=== PATIENT | male | born 1960 | race Caucasian/White ===

== ENCOUNTER 2020-11-12 19:07 | Inpatient (IN) | payer MEDICARE, OTHER ==
[~2020-11-12] VITALS: Ht 180.3 cm; Wt 106.6 kg
--- NOTE | 2020-11-12 19:10 | NUR ---
Note slick in EDM - 11/12/20 at 2015 by JOHN pt received from [facility]. pt is in bed. receiving atb iv infusion. pt is marked for dc but awaiting to finish atb.
--- NOTE | 2020-11-12 19:39 | NUR ---
GRAHAM FROM [facility]. TO ER BED 12. AAOX3. NOT IN RESP DISTRESS, BREATHING EVEN AND UNLABORED. BROUGHT IN FOR INCREASING CONFUSION. CALLED THE FACILITY TO VERIFY THE REASON OF SENDING THE PT, PER DANYEL COLLINS CEPHALOMETRIC ANALYST. PT WAS SENT BECAUSE HE WAS YELLING ANG SCREAMING THE ENTIRE DAY. SHE ALSO REPORTS THAT THE PT HAD UTI LAST WEEK AND HAVE ALREADY COMPLETED THE TREATMENT. UPON RECEIVING PT, HE WAS CALM COOPEARTIVE AND PLEASANT, NO YELLING NOR SCREAMING. WAS AT THE BEDSIDE FOR EVAL. AWAITING FOR ORDERS
[2020-11-12 20:10] LABS: BASOPHILS # (AUTO) 0.1 /CMM (0.0-0.2); BASOPHILS % (AUTO) 0.7 % (0.0-2.0); EOSINOPHILS % (AUTO) 3.3 % (0.0-6.0); HEMATOCRIT 38 % (39-51); HEMOGLOBIN 12.7 g/dL (13.5-17.5); LYMPHOCYTES # (AUTO) 2.1 /CMM (0.8-4.8); LYMPHOCYTES % (AUTO) 18.3 % (20.0-44.0); MEAN CORPUSCULAR HGB CONC 33 g/dl (31.0-36.0); MEAN CORPUSCULAR VOLUME 85 fL (80-96); MONOCYTES # (AUTO) 0.9 /CMM (0.1-1.30); NEUTROPHILS # (AUTO) 7.9 /CMM (1.8-8.9); NEUTROPHILS % (AUTO) 69.7 % (43.0-81.0); PLATELET COUNT (AUTO) 348 /CMM (150-450); RED BLOOD CELL COUNT(AUTO) 4.52 MIL/uL (4.5-6.0); WHITE BLOOD COUNT (AUTO) 11.4 K/uL (4.3-11.0)
[2020-11-12 21:06] LABS: BILIRUBIN,URINE NEGATIVE (NEGATIVE); COLOR,URINE YELLOW (YELLOW); LEUKOCYTE ESTERASE ,URINE NEGATIVE (NEGATIVE); NITRITE, URINE NEGATIVE (NEGATIVE); PH,URINE 5.5 (5.0-8.0); PROTEIN,URINE NEGATIVE (NEGATIVE); UGLUCOSE NEGATIVE (NEGATIVE); UROBILINOGEN,URINE 0.2 EU/dL (0.2)
[2020-11-12 21:15] LABS: CALCIUM, SERUM 9.8 mg/dL (8.5-10.1); CREATININE 0.8 mg/dL (0.6-1.3); POTASSIUM 4.1 mmol/L (3.5-5.1)
[2020-11-12 21:21] LABS: ALBUMIN 3.4 g/dL (3.4-5.0); BILIRUBIN,DIRECT 0.1 mg/dL (0.0-0.2); BILIRUBIN,TOTAL 0.3 mg/dL (0.2-1.0); TOTAL PROTEIN, SERUM 7.4 g/dL (6.4-8.2)
[2020-11-12] MEDS ORDERED: HYDROCODONE/APAP 5/325MG TABLET ONE (21:27)
[2020-11-12] MEDS ORDERED: HYDROCODONE/APAP 5/325MG TABLET PO ONE (21:30)
--- NOTE | 2020-11-12 23:14 | NUR ---
CALLED DARRYL RIDER FOR EVALUATION
--- NOTE | 2020-11-13 | NUR ---
ART, MONUMENT SETTER HELPER AT BEDSIDE FOR EVALUATION
--- NOTE | 2020-11-13 07:30 | NUR ---
ASSESSED PT ON BED ASLEEP EASIY AROUSABLE, NOT IN RESPIRATORY DISTRESS, V/S STABLE, KEPT RESTED AND COMFORTABLE. WILL CONTINUE TO MONITOR.
[2020-11-13] MEDS ORDERED: INSU100V7 SQ (07:57)
[2020-11-13] MEDS ORDERED: GABA-532 PO (07:57)
[2020-11-13] MEDS ORDERED: CRAN3875 PO (07:57)
[2020-11-13] MEDS ORDERED: INSU100V39 SQ (07:57)
[2020-11-13] MEDS ORDERED: LISI10TA29 PO (07:57)
[2020-11-13] MEDS ORDERED: HEPA50008 SQ (07:57)
[2020-11-13] MEDS ORDERED: BISA10SU11 RC (07:57)
[2020-11-13] MEDS ORDERED: ASCO-352 PO (07:57)
[2020-11-13] MEDS ORDERED: HYDR-3972 PO (07:57)
[2020-11-13] MEDS ORDERED: SENN-261 PO (07:57)
[2020-11-13] MEDS ORDERED: DOCU-141 PO (07:57)
[2020-11-13] MEDS ORDERED: ACET-868 PO (07:57)
[2020-11-13] MEDS ORDERED: NA P133E RC (07:57)
[2020-11-13] MEDS ORDERED: DIFL15OI3 TP (07:57)
[2020-11-13] MEDS ORDERED: FERR325T23 PO (07:57)
[2020-11-13] MEDS ORDERED: QUET100T PO (07:57)
[2020-11-13] MEDS ORDERED: GLUC1KIT IM (07:57)
[2020-11-13] MEDS ORDERED: QUET25TA PO (07:57)
[2020-11-13] MEDS ORDERED: MAGN400O6 PO (07:57)
[2020-11-13] MEDS ORDERED: LIDO30AD10 TP (07:57)
[2020-11-13] MEDS ORDERED: PRED20TA PO (07:57)
[2020-11-13] MEDS ORDERED: PANT40TA2 PO (07:57)
[2020-11-13] MEDS ORDERED: AMIN30LI2 PO (07:57)
--- NOTE | 2020-11-13 10:34 | NUR ---
GOT BED 217
--- NOTE | 2020-11-13 11:11 | NUR ---
wheeled patient via wheelchair accompanied by EMT in no distress. RN at bedside to assume care.
--- NOTE | 2020-11-13 11:45 | NUR ---
Patient received to rm 217, via stretcher, nonambulatory. Alert, awake, oriented 2 but uncooperative with admission questions, yelling "I want a tv, I didn't sign up to be here!" Staff cleaned bm and changed gown on arrival. Skin assessment complete with no open areas noted, old surgical scar noted mid-back, bilat feet edematous. No c/o pain/discomforts. Addendum: 11/13/20 at 1232 by HEATHER CLEVELAND RN Generalized splotchy areas(resemble petechiae) about body with flushed appearance.
[2020-11-13] MEDS ORDERED: MAG HYDROX/AL HYDROX/SIMETH 30 ML UDC PO PRN (12:00)
[2020-11-13] MEDS ORDERED: ACETAMINOPHEN 325 MG TABLET PO PRN ×2 (12:00→15:00)
[2020-11-13] MEDS ORDERED: MAGNESIUM HYDROXIDE 30 ML UDC PO PRN ×2 (12:00→15:00)
[2020-11-13] MEDS ORDERED: BLOOD SUGAR DIAGNOSTIC 1 EACH STRIP IN ONE (12:00)
[2020-11-13 12:08] VITALS: BP 136/84
--- NOTE | 2020-11-13 14:10 | NUR ---
flight line service attendant Note: 60 y/o male, admitted from [facility] on 5150 for GD. Patient reports he doesn't know why he is here. SNF reports he was constantly screaming nonstop. Face to face assessment patient is aa0x2, dishevelled, clear speech, denies SI/H VAH a this time. Loud, irritated, uncooperative behavior. Scattered thoughts. VS taken, patient's handbook w/ rights and guide to prescriptions given. Skin intact. Notified Dr. Carballo of admission. Will continue to monitor [id number] per protocol for safety and behavior.
[2020-11-13] MEDS ORDERED: BISACODYL SUPP (10 MG) 10 MG/SUPP.RECT SUPP.RECT RC PRN (15:00)
[2020-11-13] MEDS ORDERED: NA PHOS,M-B/NA PHOS,DI-BA 1 EA ENEMA RC PRN (15:00)
[2020-11-13] MEDS ORDERED: DEXTROSE 50%-WATER 50 ML DISP.SYRIN IV PRN ×2 (15:30→16:00)
[2020-11-13] MEDS ORDERED: INSULIN LISPRO/ASPART 100 UNIT/ML CARTRIDGE SQ ONE (15:30)
[2020-11-13] MEDS ORDERED: GLUCAGON,HUMAN RECOMBINANT 1 MG/VIAL VIAL IV ONE (15:30)
[2020-11-13] MEDS: HYDROCODONE/APAP 5/325MG TABLET PO PRN ×3 (15:41→22:42)
[2020-11-13 16:00] VITALS: BP 127/89
[2020-11-13] MEDS ORDERED: INSULIN REGULAR, HUMAN 100 UNIT/ML 3 ML VIAL SQ PRN (16:00)
[2020-11-13] MEDS: DOCUSATE SODIUM 100 MG CAPSULE PO SCH (16:33)
[2020-11-13] MEDS: predniSONE 20 MG TABLET PO SCH (16:33)
[2020-11-13] MEDS: GABAPENTIN 300 MG CAPSULE PO SCH (16:34)
[2020-11-13] MEDS: BLOOD SUGAR DIAGNOSTIC 1 EACH STRIP IN SCH ×2 (16:34→21:30)
[2020-11-13] MEDS ORDERED: BLOOD SUGAR DIAGNOSTIC 1 EACH STRIP IN SCH (17:30)
--- NOTE | 2020-11-13 18:10 | NUR ---
RN Note: Patient cooperative, calm latter shift. Remains confused with disorganized thoughts. Disconnected from reality-rambles about driving his cars to shopping. Monitoring for safety and behavior ongoing.
[2020-11-13 20:00] VITALS: BP 138/89
[2020-11-13] MEDS: HEPARIN SODIUM, PORCINE 5000 UNITS/1 ML VIAL SQ SCH (21:29)
[2020-11-13] MEDS: SENNOSIDES 8.6 MG TABLET PO SCH (21:30)
[2020-11-13] MEDS ORDERED: INSULIN GLARGINE, 100 UNIT/ML CARTRIDGE SQ SCH (22:00)
[2020-11-13] MEDS: LORAZEPAM 1 MG TABLET PO PRN (23:30)
[2020-11-14] MEDS: HYDROCODONE/APAP 5/325MG TABLET PO PRN ×2 (05:24→16:28)
[2020-11-14] MEDS: PANTOPRAZOLE 40 MG TABLET.DR PO SCH ×2 (07:30→08:38)
[2020-11-14] MEDS: BLOOD SUGAR DIAGNOSTIC 1 EACH STRIP IN SCH ×4 (07:30→21:21)
[2020-11-14 07:53] LABS: CHOLESTEROL 190 mg/dL (<200); HDL CHOLESTEROL 56 mg/dL (40-60); LDL 119 mg/dL (0-99); TRIGLYCERIDES 93 mg/dL (30-150)
[2020-11-14 08:00] VITALS: BP 139/86
[2020-11-14 08:27] LABS: ALBUMIN 3.2 g/dL (3.4-5.0); BILIRUBIN,TOTAL 0.5 mg/dL (0.2-1.0); CALCIUM, SERUM 9.4 mg/dL (8.5-10.1); CREATININE 0.7 mg/dL (0.6-1.3); POTASSIUM 3.4 mmol/L (3.5-5.1)
[2020-11-14] MEDS: DOCUSATE SODIUM 100 MG CAPSULE PO SCH ×3 (08:38→16:29)
[2020-11-14] MEDS: ASCORBIC ACID 500 MG TABLET PO SCH ×2 (08:38→09:00)
[2020-11-14] MEDS: GABAPENTIN 300 MG CAPSULE PO SCH ×4 (08:38→16:29)
[2020-11-14] MEDS: LISINOPRIL (10MG) 10 MG TABLET PO SCH ×2 (08:39→09:00)
[2020-11-14] MEDS: FERROUS SULFATE (325 MG) 325 MG/TAB TABLET PO SCH ×2 (08:39→09:00)
[2020-11-14] MEDS: HEPARIN SODIUM, PORCINE 5000 UNITS/1 ML VIAL SQ SCH ×3 (08:40→20:19)
[2020-11-14] MEDS: LIDOCAINE 5% (PATCH) 1 EA PATCH TP SCH ×2 (08:41→09:00)
[2020-11-14] MEDS: predniSONE 20 MG TABLET PO SCH (08:54)
--- NOTE | 2020-11-14 09:09 | NUR ---
pt uncooperetive-aggitated and demanding to speak with "compensation programs manager" -because he doesn't want to share a room with someone-meds returned to [facility]-advised of situation to discharge rn -aware
[2020-11-14] MEDS ORDERED: POTASSIUM CHLORIDE 20 MEQ TAB.PRT.SR PO ONE ×2 (09:30→13:00)
--- NOTE | 2020-11-14 15:40 | NUR ---
pt Blood sugar done-106-no coverage needed
[2020-11-14 16:00] VITALS: BP 142/83
[2020-11-14] MEDS: predniSONE 5 MG TABLET PO SCH (16:29)
--- NOTE | 2020-11-14 17:39 | NUR ---
RN-CO: SEEN BY DR RICHMOND.
--- NOTE | 2020-11-14 18:00 | NUR ---
Micro called Elen Henao-patient POSITIVE for MRSA in the nares-call out to Md Carballo -order received for Bactroban for the nares BID for 5 days-TORB and confirmed and transcribed
[2020-11-14] MEDS: LORAZEPAM 1 MG TABLET PO PRN (20:13)
--- NOTE | 2020-11-14 20:13 | NUR ---
GPS-RN NOTES: ANXIETY PATIENT C/O FEELING ANXIOUS AND REQUESTED FOR ATIVAN. PRN ATIVAN 1MG PO GIVEN ORDERED. WILL CONTINUE TO MONITOR FOR PATIENT'S SAFETY.
[2020-11-14 20:50] VITALS: BP 132/86
[2020-11-14] MEDS: MUPIROCIN OINT 2% 22 GM TUBE NS SCH (20:56)
[2020-11-14] MEDS: SENNOSIDES 8.6 MG TABLET PO SCH (21:10)
[2020-11-14] MEDS: QUETIAPINE FUMARATE 100 MG TABLET PO SCH (21:24)
[2020-11-14] MEDS ORDERED: INSULIN GLARGINE, 100 UNIT/ML CARTRIDGE SQ SCH (22:00)
[2020-11-15] MEDS: HYDROCODONE/APAP 5/325MG TABLET PO PRN ×3 (06:35→22:17)
--- NOTE | 2020-11-15 06:49 | NUR ---
GPS-RN NOTES: LOWER BACK PAIN PATIENT C/O LOWER BACK PAIN ON A PAIN SCALE OF 8/10. ADMINISTERED NORCO 5/325MG PO 2TABS ORDERED. WILL CONTINUE TO REASSESS PAIN.
[2020-11-15 08:00] VITALS: BP 111/66
[2020-11-15] MEDS: DOCUSATE SODIUM 100 MG CAPSULE PO SCH ×3 (08:14→16:04)
[2020-11-15] MEDS: QUETIAPINE FUMARATE 25 MG TABLET PO SCH ×2 (08:14→12:23)
[2020-11-15] MEDS: BLOOD SUGAR DIAGNOSTIC 1 EACH STRIP IN SCH ×4 (08:14→21:13)
[2020-11-15] MEDS: GABAPENTIN 300 MG CAPSULE PO SCH ×3 (08:14→16:04)
[2020-11-15] MEDS: LIDOCAINE 5% (PATCH) 1 EA PATCH TP SCH ×2 (08:14→09:00)
[2020-11-15] MEDS: PANTOPRAZOLE 40 MG TABLET.DR PO SCH (08:15)
[2020-11-15] MEDS: LORAZEPAM 1 MG TABLET PO PRN ×3 (08:15→21:20)
[2020-11-15] MEDS: LISINOPRIL (10MG) 10 MG TABLET PO SCH (08:15)
[2020-11-15] MEDS: predniSONE 5 MG TABLET PO SCH ×2 (08:15→16:04)
[2020-11-15] MEDS: MUPIROCIN OINT 2% 22 GM TUBE NS SCH ×2 (08:24→21:00)
[2020-11-15] MEDS: HEPARIN SODIUM, PORCINE 5000 UNITS/1 ML VIAL SQ SCH ×2 (08:24→21:15)
[2020-11-15 08:43] LABS: CALCIUM, SERUM 9.7 mg/dL (8.5-10.1); CREATININE 0.9 mg/dL (0.6-1.3); POTASSIUM 4.3 mmol/L (3.5-5.1)
--- NOTE | 2020-11-15 13:02 | NUR ---
Initial Discharge Plan: Pt currently resides at [facility] located at [address] [place] [id number]; . Per pt, he would like to return to the facility. FERNANDEZ will work with the pt and MD regarding appropriate discharge planning. SW will form a safe and proper plan.
--- NOTE | 2020-11-15 13:51 | NUR ---
SNF Contact: SW contacted Stefanie ([phone]) from [facility] who stated that the pt will be accepted back but they would like the SW to try other facilities first.
[2020-11-15 16:00] VITALS: BP 100/58
[2020-11-15 20:35] VITALS: BP 123/83
[2020-11-15] MEDS: INSULIN GLARGINE, 100 UNIT/ML CARTRIDGE SQ SCH (21:16)
[2020-11-15] MEDS: INSULIN ASPART/LISPRO 100 UNIT/ML CARTRIDGE SQ PRN (21:18)
--- NOTE | 2020-11-15 21:20 | NUR ---
NURSES NOTES: PATIENT REQUESTING FOR ATIVAN MEDICATION. BP AT THIS TIME IS 123/83 WITH A HR OF 79. ATIVAN 1 MG GIVEN ORALLY. WILL MONITOR PATIENT AND EFFICACY OF MEDICATION.
[2020-11-15] MEDS: SENNOSIDES 8.6 MG TABLET PO SCH (21:27)
--- NOTE | 2020-11-15 22:17 | NUR ---
NURSES NOTES: PATIENT COMPLAINING OF LOWER BACK PAIN 03/30. REQUESTED FOR HIS NORCO MEDICATION. BP RECHECKED 124/67. HR OF 77. O2 SAT AY 97%. ADMINISTERED NORCO MEDICATION PRN ORDER. WILL ,MONITOR PATIENT WELL EFFICACY OF MEDICATION.
[2020-11-15] MEDS: QUETIAPINE FUMARATE 100 MG TABLET PO SCH (22:59)
--- NOTE | 2020-11-15 22:59 | NUR ---
NURSE NOTES: PATIENT'S BP RECHECKED PRIOR TO SEROQUEL ADMINISTRATION. BP 112/83 HR78. ADMINISTERED SEROQUEL 100 MG PO GIVEN ORDERED. WILL CONTINUE TO MONITOR PATIENT.
--- NOTE | 2020-11-16 02:52 | NUR ---
NURSES NOTES: PATIENT NOTED TO HAVE THREE LOOSE BOWEL MOVEMENTS. DAVID MORIN NP MADE AWARE. MESSAGED ACKNOWLEDGED AND WITH ORDERS TO COLLECT STOOL SAMPLE FOR C DIFF TEST ON THE NEXT BOWEL MOVEMENT. ORDER NOTED AND CARRIED OUT.
[2020-11-16] MEDS: BLOOD SUGAR DIAGNOSTIC 1 EACH STRIP IN SCH ×4 (07:26→21:33)
[2020-11-16] MEDS: LORAZEPAM 1 MG TABLET PO PRN ×4 (07:39→21:34)
[2020-11-16] MEDS: PANTOPRAZOLE 40 MG TABLET.DR PO SCH (07:39)
[2020-11-16 08:00] VITALS: BP 113/69
[2020-11-16] MEDS: QUETIAPINE FUMARATE 25 MG TABLET PO SCH ×2 (08:02→12:16)
[2020-11-16] MEDS: predniSONE 5 MG TABLET PO SCH ×2 (08:02→16:08)
[2020-11-16] MEDS: MUPIROCIN OINT 2% 22 GM TUBE NS SCH ×2 (08:03→20:36)
[2020-11-16] MEDS: DOCUSATE SODIUM 100 MG CAPSULE PO SCH ×2 (08:03→16:01)
[2020-11-16] MEDS: GABAPENTIN 300 MG CAPSULE PO SCH ×3 (08:03→16:02)
[2020-11-16] MEDS: LISINOPRIL (10MG) 10 MG TABLET PO SCH (08:03)
[2020-11-16] MEDS: HEPARIN SODIUM, PORCINE 5000 UNITS/1 ML VIAL SQ SCH ×2 (08:03→20:43)
[2020-11-16] MEDS: LIDOCAINE 5% (PATCH) 1 EA PATCH TP SCH (08:04)
--- NOTE | 2020-11-16 08:04 | NUR ---
RN NOTES: Patient presents with agitation this a.m, demanding a change of room with tv, constant yelling "nurse, help" no acute distress noted. Patient refused lidocaine patch, fingerstick, colace, heparin and bactroban-"I don't need that shit!" Breakfast consumed.
[2020-11-16] MEDS: HYDROCODONE/APAP 5/325MG TABLET PO PRN ×2 (10:39→16:41)
--- NOTE | 2020-11-16 14:31 | NUR ---
Patient in the room, awake, screaming for nurses help continuous. Patient frequently request ativan and norco prior to when due. Medication time provided on board.Explained to the patient regarding the times he can have his medications based on doctors orders. He says "fuck vitals signs bring my medicine." q15 min checks continued. Safety and fall precautions observed. bed alarm kept on. encouraged patient to turn to sides while in bed to relieve pressure off his back. Limit setting done. Will continue to monitor patient for mood, safety and behavior.
[2020-11-16 16:00] VITALS: BP 124/63
--- NOTE | 2020-11-16 17:44 | NUR ---
1730 BS 131 PATIENT REFUSE INSULIN.
[2020-11-16 20:25] VITALS: BP 126/75
[2020-11-16] MEDS: QUETIAPINE FUMARATE 100 MG TABLET PO SCH (20:37)
[2020-11-16] MEDS: SENNOSIDES 8.6 MG TABLET PO SCH ×2 (21:33→22:00)
--- NOTE | 2020-11-16 21:34 | NUR ---
GPS-RN NOTES: ANXIETY PATIENT C/O FEELING ANXIOUS AND REQUESTED FOR ATIVAN. PRN ATIVAN 1MG PO GIVEN ORDERED. WILL CONTINUE TO MONITOR FOR PATIENT'S SAFETY.
[2020-11-16] MEDS: INSULIN GLARGINE, 100 UNIT/ML CARTRIDGE SQ SCH (21:47)
--- NOTE | 2020-11-16 22:30 | NUR ---
GPS-RN NOTES: SENOKOT DOSE SCHEDULED FOR TONIGHT HELD DUE TO PT HAD LOOSE BOWEL MOVEMENT THIS MORNING.
[2020-11-16] MEDS: TEMAZEPAM 7.5 MG CAPSULE PO PRN (23:16)
--- NOTE | 2020-11-16 23:16 | NUR ---
GPS-RN NOTES: INSOMNIA PATIENT C/O INABILITY TO SLEEP. ADMINISTERED RESTORIL 15MG PO ORDERED. WILL CONTINUE TO MONITOR.
[2020-11-17] MEDS: HYDROCODONE/APAP 5/325MG TABLET PO PRN ×2 (05:56→16:54)
[2020-11-17] MEDS: BLOOD SUGAR DIAGNOSTIC 1 EACH STRIP IN SCH ×4 (07:57→21:22)
[2020-11-17 08:00] VITALS: BP 119/76
[2020-11-17] MEDS: LIDOCAINE 5% (PATCH) 1 EA PATCH TP SCH ×2 (09:00→09:17)
[2020-11-17] MEDS: LISINOPRIL (10MG) 10 MG TABLET PO SCH (09:00)
[2020-11-17] MEDS: MUPIROCIN OINT 2% 22 GM TUBE NS SCH ×2 (09:00→21:27)
[2020-11-17] MEDS: DOCUSATE SODIUM 100 MG CAPSULE PO SCH ×2 (09:00→16:31)
[2020-11-17] MEDS: PANTOPRAZOLE 40 MG TABLET.DR PO SCH (09:16)
[2020-11-17] MEDS: GABAPENTIN 300 MG CAPSULE PO SCH ×3 (09:16→16:54)
[2020-11-17] MEDS: LORAZEPAM 1 MG TABLET PO PRN ×3 (09:16→20:10)
[2020-11-17] MEDS: predniSONE 5 MG TABLET PO SCH ×2 (09:16→16:54)
--- NOTE | 2020-11-17 09:16 | NUR ---
given ativan per pt. request for nervousness.
[2020-11-17] MEDS: QUETIAPINE FUMARATE 100 MG TABLET PO SCH ×2 (09:17→21:49)
[2020-11-17] MEDS: HEPARIN SODIUM, PORCINE 5000 UNITS/1 ML VIAL SQ SCH ×2 (09:18→21:58)
--- NOTE | 2020-11-17 12:42 | NUR ---
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 very needy.
--- NOTE | 2020-11-17 13:19 | NUR ---
given ativan for severe agitation.
[2020-11-17 16:00] VITALS: BP 108/75
--- NOTE | 2020-11-17 16:54 | NUR ---
given norco for back pain.
[2020-11-17 20:11] VITALS: BP 137/82
--- NOTE | 2020-11-17 20:11 | NUR ---
GPS RN NOTES: PT REQUESTED FOR ATIVAN FOR ANXIETY AT 20:08. ATIVAN 1MG 1TAP GIVEN PO AT 20:11 ORDERED. WILL CONTINUE TO MONITOR.
[2020-11-17] MEDS: INSULIN GLARGINE, 100 UNIT/ML CARTRIDGE SQ SCH (21:18)
[2020-11-17] MEDS: SENNOSIDES 8.6 MG TABLET PO SCH (22:00)
--- NOTE | 2020-11-17 22:18 | NUR ---
GPS RN NOTES: PATIENT REFUSED 22:00 RAJEEV
[2020-11-17] MEDS: TEMAZEPAM 7.5 MG CAPSULE PO PRN (22:52)
--- NOTE | 2020-11-17 22:53 | NUR ---
GPS RN NOTES: PATIENT REQUESTED FOR SLEEP MEDICATION D/T INSOMNIA. RESTORIL 7.5MG 2CAPS/15MG GIVEN PO PRN ORDERED AT 2252. WILL CONTINUE TO MONITOR.
[2020-11-18] MEDS: HYDROCODONE/APAP 5/325MG TABLET PO PRN ×3 (06:27→22:02)
--- NOTE | 2020-11-18 06:52 | NUR ---
GPS RN CLOSING NOTES: PATIENT LAYING ON BED, AWAKE, ALERT AND ORIENTED X2-3. LABILE, NEEDY, SLEPT 4HR THIS SHIFT. PATIENT C/O BACK PAIN LEVEL OF 8/10, NORCO 5/325MG 2TABS GIVEN PO PRN AT 0627. NO S/S OF DISTRESS. RESPIRATION EVEN AND UNLABORED WITH EQUAL RISE AND FALL OF THE CHEST ON ROOM AIR. SAFETY PRECAUTION MAINTAINED, Q15 MINUTES SAFETY ROUND CONTINUED. ALL PATIENT CARE NEEDS HAVE BEEN MET AT THIS TIME. WILL CONTINUE TO MONITOR PATIENT FOR MOOD, BEHAVIOR AND SAFETY AND ENDORSE TO AM SHIFT.
[2020-11-18] MEDS: BLOOD SUGAR DIAGNOSTIC 1 EACH STRIP IN SCH ×4 (07:40→22:24)
[2020-11-18 08:00] VITALS: BP 118/82
[2020-11-18] MEDS: PANTOPRAZOLE 40 MG TABLET.DR PO SCH (08:47)
[2020-11-18] MEDS: GABAPENTIN 300 MG CAPSULE PO SCH ×3 (08:47→17:04)
[2020-11-18] MEDS: DOCUSATE SODIUM 100 MG CAPSULE PO SCH ×2 (08:48→17:00)
[2020-11-18] MEDS: predniSONE 5 MG TABLET PO SCH ×2 (08:48→17:05)
[2020-11-18] MEDS: QUETIAPINE FUMARATE 100 MG TABLET PO SCH ×2 (08:48→20:13)
[2020-11-18] MEDS: HEPARIN SODIUM, PORCINE 5000 UNITS/1 ML VIAL SQ SCH ×2 (08:50→20:17)
[2020-11-18] MEDS: LISINOPRIL (10MG) 10 MG TABLET PO SCH (08:56)
[2020-11-18] MEDS: LIDOCAINE 5% (PATCH) 1 EA PATCH TP SCH (08:57)
--- NOTE | 2020-11-18 09:00 | NUR ---
RN NOTE- PT ALERT INTRUSIVE DEMANDING NEEDY YELLS OFTEN 'NURSE' ASSIST NEEDED REPOSITION, MED COMPLIANT , NO SX BLEEDING
[2020-11-18] MEDS: MUPIROCIN OINT 2% 22 GM TUBE NS SCH ×2 (09:01→20:19)
[2020-11-18 16:00] VITALS: BP 116/61
[2020-11-18] MEDS: INSULIN ASPART/LISPRO 100 UNIT/ML CARTRIDGE SQ PRN (17:39)
[2020-11-18 20:27] VITALS: BP 127/87
[2020-11-18] MEDS: LORAZEPAM 1 MG TABLET PO PRN (20:28)
--- NOTE | 2020-11-18 20:30 | NUR ---
GPS RN NOTE: PATIENT IS AGITATED, YELLING AND CURSING. ATIVAN 1MG 1TAB PO PRN GIVEN AT 2029. WILL CONTINUE TO MONITOR
[2020-11-18] MEDS: SENNOSIDES 8.6 MG TABLET PO SCH (22:01)
[2020-11-18] MEDS: INSULIN GLARGINE, 100 UNIT/ML CARTRIDGE SQ SCH (22:27)
[2020-11-18] MEDS: TEMAZEPAM 7.5 MG CAPSULE PO PRN (23:16)
--- NOTE | 2020-11-19 06:10 | NUR ---
GPS RN CLOSING NOTES: PATIENT LAYING ON BED, AWAKE, ALERT AND ORIENTED X2-3. SLEPT 7HR THIS SHIFT. WEEKLY SKIN ASSESSMENT DONE, PICTURES TAKEN AND PLACED IN PATIENT CHART. NO S/S OF DISTRESS. RESPIRATION EVEN AND UNLABORED WITH EQUAL RISE AND FALL OF THE CHEST ON ROOM AIR. SAFETY PRECAUTION MAINTAINED, Q15 MINUTES SAFETY ROUND CONTINUED. ALL PATIENT CARE NEEDS HAVE BEEN MET AT THIS TIME. WILL CONTINUE TO MONITOR PATIENT FOR MOOD, BEHAVIOR AND SAFETY AND ENDORSE TO AM SHIFT.
[2020-11-19] MEDS: INSULIN ASPART/LISPRO 100 UNIT/ML CARTRIDGE SQ PRN ×3 (07:48→16:50)
[2020-11-19] MEDS: BLOOD SUGAR DIAGNOSTIC 1 EACH STRIP IN SCH ×4 (07:48→21:14)
[2020-11-19 08:00] VITALS: BP 132/87
[2020-11-19] MEDS: MUPIROCIN OINT 2% 22 GM TUBE NS SCH ×2 (08:39→21:14)
[2020-11-19] MEDS: LIDOCAINE 5% (PATCH) 1 EA PATCH TP SCH (08:39)
[2020-11-19] MEDS: PANTOPRAZOLE 40 MG TABLET.DR PO SCH (08:54)
[2020-11-19] MEDS: GABAPENTIN 300 MG CAPSULE PO SCH ×3 (08:54→16:16)
[2020-11-19] MEDS: DOCUSATE SODIUM 100 MG CAPSULE PO SCH ×2 (08:54→16:02)
[2020-11-19] MEDS: QUETIAPINE FUMARATE 100 MG TABLET PO SCH ×2 (08:54→21:07)
[2020-11-19] MEDS: HEPARIN SODIUM, PORCINE 5000 UNITS/1 ML VIAL SQ SCH ×2 (08:55→21:10)
[2020-11-19] MEDS: LISINOPRIL (10MG) 10 MG TABLET PO SCH (08:55)
[2020-11-19] MEDS: predniSONE 5 MG TABLET PO SCH ×2 (08:56→16:16)
[2020-11-19] MEDS: HYDROCODONE/APAP 5/325MG TABLET PO PRN ×2 (09:05→16:42)
--- NOTE | 2020-11-19 13:28 | NUR ---
Probable Cause Hearing: Pts [phone] hold was upheld for grave disability.
--- NOTE | 2020-11-19 13:54 | NUR ---
SNF Referral: FERNANDEZ faxed a referral to [facility] with attn to Blossom to the fax number: [phone].
[2020-11-19 16:00] VITALS: BP 117/78
[2020-11-19] MEDS: LORAZEPAM 1 MG TABLET PO PRN (16:42)
[2020-11-19 20:02] VITALS: BP 128/82
[2020-11-19] MEDS: SENNOSIDES 8.6 MG TABLET PO SCH (21:07)
[2020-11-19] MEDS: INSULIN GLARGINE, 100 UNIT/ML CARTRIDGE SQ SCH (21:11)
[2020-11-19] MEDS: TEMAZEPAM 7.5 MG CAPSULE PO PRN (22:03)
--- NOTE | 2020-11-19 22:03 | NUR ---
NURSES NOTES: PATIENT REQUESTED FOR SLEEPING MEDS- RESTORIL 15 MG GIVEN ORALLY PRN ORDER.WILL MONITOR PATIENT'S SLEEP PATTERN WELL EFFICACY OF MEDICATION.
[2020-11-20] MEDS: HYDROCODONE/APAP 5/325MG TABLET PO PRN ×3 (00:24→18:47)
--- NOTE | 2020-11-20 00:24 | NUR ---
NURSES NOTES: PATIENT COMPLAINED OF PAIN ON HIS RIGHT LEG . NORCO 5/325 MG 2 TABS GIVEN PRN ORDER. WILL MONITOR PATIENT'S PAIN STATUS.
[2020-11-20] MEDS: BLOOD SUGAR DIAGNOSTIC 1 EACH STRIP IN SCH ×4 (07:21→21:34)
[2020-11-20] MEDS: PANTOPRAZOLE 40 MG TABLET.DR PO SCH (07:41)
[2020-11-20 08:00] VITALS: BP 115/79
[2020-11-20] MEDS: DOCUSATE SODIUM 100 MG CAPSULE PO SCH ×2 (08:37→16:29)
[2020-11-20] MEDS: QUETIAPINE FUMARATE 100 MG TABLET PO SCH ×2 (08:37→20:43)
[2020-11-20] MEDS: GABAPENTIN 300 MG CAPSULE PO SCH ×3 (08:37→16:29)
[2020-11-20] MEDS: LISINOPRIL (10MG) 10 MG TABLET PO SCH (08:38)
[2020-11-20] MEDS: predniSONE 5 MG TABLET PO SCH ×2 (08:38→16:29)
[2020-11-20] MEDS: HEPARIN SODIUM, PORCINE 5000 UNITS/1 ML VIAL SQ SCH ×2 (08:39→20:44)
[2020-11-20] MEDS: LIDOCAINE 5% (PATCH) 1 EA PATCH TP SCH (08:46)
--- NOTE | 2020-11-20 09:00 | NUR ---
RN NOTE- PT ALERT CALM NEEDY DENIES ALL INTERACTIVE MED COMPLIANT NO BEHAVIORAL ISSUES AT PRESENT
--- NOTE | 2020-11-20 10:48 | NUR ---
SNF Referral: FERNANDEZ faxed a referral to [facility] with attn to Katalina to the fax number: [phone].
[2020-11-20] MEDS: LORAZEPAM 1 MG TABLET PO PRN ×2 (13:22→21:47)
--- NOTE | 2020-11-20 13:23 | NUR ---
RN NOTE- C/O ANXIETY. ATIVAN 1 MG GIVEN
[2020-11-20 16:00] VITALS: BP 115/77
[2020-11-20 19:46] VITALS: BP 124/76
--- NOTE | 2020-11-20 21:49 | NUR ---
GPS RN NOTES: PT REQUESTED FOR ATIVAN FOR ANXIETY. ATIVAN 1MG/1TAB GIVEN PO PRN AT 21:47 ORDERED. WILL CONTINUE TO MONITOR.
[2020-11-20] MEDS: SENNOSIDES 8.6 MG TABLET PO SCH (22:00)
--- NOTE | 2020-11-20 22:12 | NUR ---
GPS RN NOTES: PATIENT REFUSED 22:00 SENOKOT 8.6MG, 2TABS/17.2MG.
[2020-11-20] MEDS: TEMAZEPAM 7.5 MG CAPSULE PO PRN (23:18)
--- NOTE | 2020-11-21 06:25 | NUR ---
GPS RN CLOSING NOTES: PATIENT LAYING ON BED, AWAKE, ALERT AND ORIENTED X2-3. SLEPT 7HR THIS SHIFT. MED COMPLIANT. NO S/S OF DISTRESS. RESPIRATION EVEN AND UNLABORED WITH EQUAL RISE AND FALL OF THE CHEST ON ROOM AIR. SAFETY PRECAUTION MAINTAINED, Q15 MINUTES SAFETY ROUND CONTINUED. ALL PATIENT CARE NEEDS HAVE BEEN MET AT THIS TIME. WILL CONTINUE TO MONITOR PATIENT FOR MOOD, BEHAVIOR AND SAFETY AND ENDORSE TO AM SHIFT.
[2020-11-21] MEDS: HYDROCODONE/APAP 5/325MG TABLET PO PRN ×2 (07:01→21:10)
--- NOTE | 2020-11-21 07:02 | NUR ---
GPS RN NOTES: PATIENT C/O BACK PAIN. RATES PAIN LEVEL 8/10. NORCO 5/325MG 2TABS GIVEN PO PRN ORDERED. WILL MONITOR AND ENDORSE TO AM SHIFT.
[2020-11-21 08:00] VITALS: BP 114/73
[2020-11-21] MEDS: BLOOD SUGAR DIAGNOSTIC 1 EACH STRIP IN SCH ×4 (08:13→21:11)
[2020-11-21] MEDS: PANTOPRAZOLE 40 MG TABLET.DR PO SCH (08:39)
[2020-11-21] MEDS: DOCUSATE SODIUM 100 MG CAPSULE PO SCH ×3 (08:39→17:00)
[2020-11-21] MEDS: predniSONE 5 MG TABLET PO SCH (08:39)
[2020-11-21] MEDS: QUETIAPINE FUMARATE 100 MG TABLET PO SCH ×2 (08:39→21:12)
[2020-11-21] MEDS: GABAPENTIN 300 MG CAPSULE PO SCH ×3 (08:39→17:42)
[2020-11-21] MEDS: LISINOPRIL (10MG) 10 MG TABLET PO SCH (08:40)
--- NOTE | 2020-11-21 10:30 | NUR ---
STATES WANTS TO TALK TO SOLUTIONS ENGINEER.SEMANTHA INFORMED.
--- NOTE | 2020-11-21 11:16 | NUR ---
ATTEMPTED TO REFUSE MEDS BUT ENDED UP TAKING.
--- NOTE | 2020-11-21 12:24 | NUR ---
REFUSEDNOON ACCU-CHECK
[2020-11-21 16:00] VITALS: BP 126/86
--- NOTE | 2020-11-21 18:44 | NUR ---
argumentative most of the day.
[2020-11-21 20:03] VITALS: BP 126/74
--- NOTE | 2020-11-21 21:20 | NUR ---
PATIENT REQUESTED PAIN MEDICATION, VERBALIZES PAIN 9/10 TO BLE. NORCO ADMINISTERED PER ORDERS, WILL CONTINUE MONITORING CLOSELY.
[2020-11-21] MEDS: SENNOSIDES 8.6 MG TABLET PO SCH (21:52)
[2020-11-21] MEDS: TEMAZEPAM 7.5 MG CAPSULE PO PRN (23:12)
--- NOTE | 2020-11-22 05:58 | NUR ---
PATIENT SLEPT FOR ABOUT 9 HOURS, SAFETY PRECAUTIONS MAINTAINED. WILL CONTINUE MONITORING CLOSELY.
[2020-11-22] MEDS: BLOOD SUGAR DIAGNOSTIC 1 EACH STRIP IN SCH ×4 (07:36→21:11)
[2020-11-22] MEDS: LORAZEPAM 1 MG TABLET PO PRN ×2 (07:57→14:44)
[2020-11-22] MEDS: PANTOPRAZOLE 40 MG TABLET.DR PO SCH (07:57)
[2020-11-22 08:00] VITALS: BP 103/60
[2020-11-22] MEDS: LISINOPRIL (10MG) 10 MG TABLET PO SCH (08:00)
[2020-11-22] MEDS: QUETIAPINE FUMARATE 100 MG TABLET PO SCH ×2 (08:00→20:43)
[2020-11-22] MEDS: predniSONE 5 MG TABLET PO SCH (08:00)
[2020-11-22] MEDS: GABAPENTIN 300 MG CAPSULE PO SCH ×3 (08:00→16:06)
[2020-11-22] MEDS: DOCUSATE SODIUM 100 MG CAPSULE PO SCH ×2 (08:01→16:06)
[2020-11-22] MEDS: HYDROCODONE/APAP 5/325MG TABLET PO PRN ×2 (09:48→16:06)
--- NOTE | 2020-11-22 14:39 | NUR ---
RN-CO: PER PT HE GOT HIS FLU VACCINE LAST AUG 2020 , AND PNA LAST 2018.
--- NOTE | 2020-11-22 15:57 | NUR ---
RN-CO: Patient is extremely demanding, non stop screaming to get what he want, verbally abusive. He is focused on discharge but then he will change his mind. He stated : Fu*& this place, fu#* you nurses here!" He wanted triple portion of food but he is diabetic.
[2020-11-22 16:00] VITALS: BP 110/55
[2020-11-22] MEDS: INSULIN ASPART/LISPRO 100 UNIT/ML CARTRIDGE SQ PRN (16:41)
--- NOTE | 2020-11-22 17:34 | NUR ---
RN NOTE PATIENT DEMANDING "NORCO AND ATIVAN" MOST OF DAY. NURSE RE-INFORMED HIM OF THE TIME OF DOSAGE. HE REPLIES "F THIS [facility], YOU PEOPLE ARE DUMB AND ILLITERATE," "I WANT TO GO BACK TO MY [facility]." UNREALISTIC THOUGHTS AND REQUESTS.
--- NOTE | 2020-11-22 18:14 | NUR ---
RN-CO: PATIENT IS VERBALLY ABUSIVE, YELLING AND SCREAMING NON STOP AND CURSING ALL STAFF. THREW HIS DINNER PLATE ON THE FLOOR. ATIVAN PO IS INEFFECTIVE. CALLING ALL STAFF 'FUC*&%" PAGED DR RICHMOND FOR AN ORDER. RN TRIED TO TALK TO HIM BUT INEFFECTIVE. PT IS VERY DISRUPTIVE IN THE UNIT AND TO HIS ROOM MATE. THREATENING TO LEAVE THE UNIT.
--- NOTE | 2020-11-22 18:41 | NUR ---
RN-CO: Patient is calmer now since we change his room to a room without a room mate.
[2020-11-22 19:52] VITALS: BP 101/52
[2020-11-22] MEDS: SENNOSIDES 8.6 MG TABLET PO SCH (21:04)
--- NOTE | 2020-11-22 21:07 | NUR ---
GPS-RN NOTES: SENOKOT DOSE SCHEDULED FOR TONIGHT HELD. PER PATIENT, HE HAD LOOSE BOWEL MOVEMENT X1 TODAY. WILL CONTINUE TO MONITOR.
[2020-11-22] MEDS: TEMAZEPAM 7.5 MG CAPSULE PO PRN (22:27)
--- NOTE | 2020-11-22 22:28 | NUR ---
GPS-RN NOTES: INSOMNIA PATIENT C/O INABILITY TO SLEEP. ADMINISTERED RESTORIL 15MG PO ORDERED. WILL CONTINUE TO MONITOR.
[2020-11-23] MEDS: HYDROCODONE/APAP 5/325MG TABLET PO PRN ×2 (07:29→14:22)
[2020-11-23] MEDS: BLOOD SUGAR DIAGNOSTIC 1 EACH STRIP IN SCH ×4 (07:36→22:13)
[2020-11-23 08:00] VITALS: BP 99/67
[2020-11-23] MEDS: predniSONE 5 MG TABLET PO SCH (08:17)
[2020-11-23] MEDS: GABAPENTIN 300 MG CAPSULE PO SCH ×3 (08:17→16:50)
[2020-11-23] MEDS: PANTOPRAZOLE 40 MG TABLET.DR PO SCH (08:17)
[2020-11-23] MEDS: LISINOPRIL (10MG) 10 MG TABLET PO SCH (08:19)
[2020-11-23] MEDS: QUETIAPINE FUMARATE 100 MG TABLET PO SCH ×2 (08:19→21:05)
[2020-11-23] MEDS: DOCUSATE SODIUM 100 MG CAPSULE PO SCH ×2 (08:20→16:51)
--- NOTE | 2020-11-23 09:00 | NUR ---
RN NOTE- PT ALERT ORIENTED TO PERSON PLACE, MED COMPLIANT PO INTAKE GOOD DENIES ALL NEEDY, DELUSIONAL NO BEHAVIORAL ISSUES
--- NOTE | 2020-11-23 11:48 | NUR ---
SNF Contact: Lin ([phone]) from [facility] stated that the pt was not accepted due to an issue with his days.
[2020-11-23] MEDS: INSULIN ASPART/LISPRO 100 UNIT/ML CARTRIDGE SQ PRN ×2 (11:52→16:51)
[2020-11-23 16:02] VITALS: BP 116/66
[2020-11-23] MEDS: LORAZEPAM 1 MG TABLET PO PRN (19:53)
--- NOTE | 2020-11-23 19:56 | NUR ---
RN NOTE; ANXIETY PATIENT REQUESTED TO TAKE ATIVAN DUE TO ANXIETY. PRN ATIVAN 1 MG PO GIVEN. WILL CONTINUE TO MONITOR
[2020-11-23 20:09] VITALS: BP 109/72
[2020-11-23 20:37] VITALS: BP 109/72
[2020-11-23] MEDS: ATORVASTATIN 10 MG TABLET PO SCH (21:32)
[2020-11-23] MEDS: SENNOSIDES 8.6 MG TABLET PO SCH (21:58)
--- NOTE | 2020-11-23 21:59 | NUR ---
GPS-RN NOTES: PATIENT REFUSED SENOKOT DOSE SCHEDULED FOR TONIGHT X 3 DESPITE OF RISKS & BENEFIT EXPLANATIONS, GOT AGITATED WHILE PROVIDING EXPLANATIONS & ASKED THE NURSE TO LEAVE THE ROOM. PER PATIENT. WILL CONTINUE TO MONITOR.
--- NOTE | 2020-11-23 22:13 | NUR ---
RN NOTE: PATIENT'S BLOOD SUGAR LEVEL IS 106 MG/DL. NO INSULIN ADMINISTERED. ORANGE JUICE GIVEN TO THE PATIENT, PT. SIPPING ON ORANGE JUICE. WILL CONTINUE TO MONITOR FOR ANY CHANGE OF CONDITION.
--- NOTE | 2020-11-23 22:45 | NUR ---
RN NOTE PATIENT FINISHED ORANGE JUICE & RESTING IN BED, AWAKE.
[2020-11-23] MEDS: TEMAZEPAM 7.5 MG CAPSULE PO PRN (22:56)
--- NOTE | 2020-11-23 22:57 | NUR ---
RN NOTE: INSOMNIA PATIENT REQUESTED FOR SLEEPING MEDICINE DUE TO UNABLE TO SLEEP, RESTLESS, AGITATED. PRN RESTORIL 15 MG PO GIVEN. WILL CONTINUE TO MONITOR PATIENT.
--- NOTE | 2020-11-23 23:24 | NUR ---
RN NOTE PATIENT IS SLEEPING COMFORTABLY AT THIS TIME.
--- NOTE | 2020-11-24 06:27 | NUR ---
RN NOTE PATIENT REFUSED BLOOD DRAW FOR AM LABS DESPITE OF EXPLANATIONS.
[2020-11-24 08:00] VITALS: BP 146/86
[2020-11-24] MEDS: predniSONE 5 MG TABLET PO SCH (08:02)
[2020-11-24] MEDS: QUETIAPINE FUMARATE 100 MG TABLET PO SCH ×2 (08:02→21:18)
[2020-11-24] MEDS: GABAPENTIN 300 MG CAPSULE PO SCH ×3 (08:03→16:09)
[2020-11-24] MEDS: BLOOD SUGAR DIAGNOSTIC 1 EACH STRIP IN SCH ×4 (08:04→21:35)
[2020-11-24] MEDS: PANTOPRAZOLE 40 MG TABLET.DR PO SCH (08:04)
[2020-11-24] MEDS: SERTRALINE HCL 50 MG TABLET PO SCH (08:12)
[2020-11-24] MEDS: LISINOPRIL (10MG) 10 MG TABLET PO SCH (08:12)
[2020-11-24] MEDS: HYDROCODONE/APAP 5/325MG TABLET PO PRN ×2 (08:13→20:08)
[2020-11-24] MEDS: DOCUSATE SODIUM 100 MG CAPSULE PO SCH ×2 (08:15→16:09)
--- NOTE | 2020-11-24 08:20 | NUR ---
GPS RN PAIN : PATIENT COMPLAINING OF BACK PAIN NORCO 5/325 MG 2 TAB GIVEN PER ORDER WILL CONTINUE MONITORING
[2020-11-24 16:00] VITALS: BP 129/76
--- NOTE | 2020-11-24 16:43 | NUR ---
GPS RN NOTE: PT REFUSED LABS X2 TODAY EXPLAIN RISK AND BENEFITS X3 PT CONTINUE REFUSING
[2020-11-24 19:58] VITALS: BP 103/68
[2020-11-24 20:05] VITALS: BP 103/68
--- NOTE | 2020-11-24 20:08 | NUR ---
RN NOTE: PAIN PATIENT IS C/O BACK PAIN 8/10, LOUD, SCREAMING, AGITATED, IRRITABLE, RESTLESS DUE TO PAIN & REQUESTED TO TAKE NORCO ONLY, REFUSED ANY OTHER PAIN MEDICINE. PRN NORCO 5/325 MG X 2 TBS PO GIVEN. WILL CONTINUE TO MONITOR.
--- NOTE | 2020-11-24 20:28 | NUR ---
RN NOTE PATIENT SEEN BY DR. RICHMOND AT THIS TIME. NO NEW ORDER RECEIVED.
--- NOTE | 2020-11-24 21:20 | NUR ---
RN NOTE: PATIENT'S BP RECHECKED PRIOR TO SEROQUEL ADMINISTRATION. BP 106/73 HR 85. ADMINISTERED SEROQUEL 150 MG PO GIVEN ORDERED. WILL CONTINUE TO MONITOR PATIENT.
[2020-11-24] MEDS: ATORVASTATIN 10 MG TABLET PO SCH (21:35)
[2020-11-24] MEDS: SENNOSIDES 8.6 MG TABLET PO SCH (21:37)
--- NOTE | 2020-11-24 21:37 | NUR ---
RN NOTES: REFUSED SENOKOT PATIENT REFUSED SENOKOT DOSE SCHEDULED FOR TONIGHT X 3 DESPITE OF RISKS & BENEFIT EXPLANATIONS, WILL CONTINUE TO MONITOR.
--- NOTE | 2020-11-24 21:46 | NUR ---
RN NOTE: PATIENT'S BLOOD SUGAR LEVEL IS 129 MG/DL. NO INSULIN ADMINISTERED. NO JOSÉ MIGUEL NOTED AT THIS TIME. WILL CONTINUE TO MONITOR FOR ANY CHANGE OF CONDITION.
[2020-11-24] MEDS: TEMAZEPAM 7.5 MG CAPSULE PO PRN (22:56)
--- NOTE | 2020-11-24 22:59 | NUR ---
RN NOTE: INSOMNIA PATIENT STATED THAT HE CAN NOT SLEEP, RESTLESS, YELLS & SCREAMS INTERMITTENTLY, PT. WANTED TO TAKE SLEEPING MEDICINE. PRN RESTORIL 15 MG PO ADMINISTERED. WILL CONTINUE TO MONITOR.
--- NOTE | 2020-11-25 07:03 | NUR ---
RN NOTE PATIENT HAD 2 MEDIUM & 1 SMALL LOOSE BM AT NIGHT. SENOKOT WAS NOT ADMINISTERED. ENDORSED TO AM RN TO HOLD LAXATIVE IN AM & MONITOR CLOSELY FOR ANY CHANGE OF CONDITION.
[2020-11-25] MEDS: BLOOD SUGAR DIAGNOSTIC 1 EACH STRIP IN SCH ×4 (07:30→22:16)
[2020-11-25] MEDS: PANTOPRAZOLE 40 MG TABLET.DR PO SCH ×2 (07:30→08:15)
[2020-11-25 08:00] VITALS: BP 113/70
[2020-11-25] MEDS: QUETIAPINE FUMARATE 100 MG TABLET PO SCH ×3 (08:13→21:29)
[2020-11-25] MEDS: predniSONE 5 MG TABLET PO SCH ×2 (08:13→09:00)
[2020-11-25] MEDS: LISINOPRIL (10MG) 10 MG TABLET PO SCH ×2 (08:14→09:00)
[2020-11-25] MEDS: DOCUSATE SODIUM 100 MG CAPSULE PO SCH ×2 (08:14→16:26)
[2020-11-25] MEDS: SERTRALINE HCL 50 MG TABLET PO SCH ×2 (08:14→09:00)
[2020-11-25] MEDS: GABAPENTIN 300 MG CAPSULE PO SCH ×4 (08:14→16:26)
--- NOTE | 2020-11-25 09:17 | NUR ---
RN NOTE PATIENT REQUEST EXTRA BREAKFAST TRAY. [employer] EXPLAINED TO PATIENT DIET MANAGEMENT OF DIABETIC AND WEIGHT CONTROL. PATIENT BECAME VERY LOUD, CURSING AND STATED "I'M NOT TAKING SHIT YOU TRY TO GIVE ME TODAY, F YOU AND THIS CHEAP [facility], I'M GOING TO GET UP AND WALK OUT!" REALITY ORIENTATION AND TIME TO CALM ALLOWED. [employer] OFFERED MEDICATION AFTERWARDS AND PATIENT REFUSED. EDUCATED ON BENEFITS AND ADVERSE EFFECTS OF NOT TAKING MEDICATION. WILL CONTINUE TO MONITOR.
[2020-11-25] MEDS: HYDROCODONE/APAP 5/325MG TABLET PO PRN ×2 (10:55→21:31)
--- NOTE | 2020-11-25 12:27 | NUR ---
RN NOTE PATIENT NOTED MASTURBATING. PRIVACY PROVIDED
[2020-11-25 16:00] VITALS: BP 121/86
[2020-11-25] MEDS: LORAZEPAM 1 MG TABLET PO PRN (16:26)
--- NOTE | 2020-11-25 17:27 | NUR ---
RN NOTE STAFF REPORTS 3 LOOSE STOOL THIS SHIFT AND PREVIOUS NIGHT NURSE ENDORSED LOOSE STOOL ALSO HER SHIFT. MD NOTIFIED WITH ORDERS FOR IMMODIUM 4MG Q6H PRN FOR LOOSE STOOL. PATIENT MADE AWARE OF ORDERS.
[2020-11-25] MEDS: LOPERAMIDE HCL (2 MG CAP) 2 MG CAPSULE PO PRN ×2 (17:50→23:31)
[2020-11-25 20:03] VITALS: BP 110/73
--- NOTE | 2020-11-25 21:33 | NUR ---
GPS RN NOTES: PATIENT C/O GENERALIZED BODY PAIN. RATES PAIN LEVEL 8/10. NORCO 5/325MG 2TABS GIVEN PO PRN ORDERED. WILL CONTINUE TO MONITOR.
[2020-11-25] MEDS: ATORVASTATIN 10 MG TABLET PO SCH (22:00)
[2020-11-25] MEDS: SENNOSIDES 8.6 MG TABLET PO SCH (22:00)
[2020-11-25] MEDS: TEMAZEPAM 7.5 MG CAPSULE PO PRN (22:59)
--- NOTE | 2020-11-26 07:15 | NUR ---
GPS RN CLOSING NOTES: PATIENT LAYING ON BED, AWAKE, ALERT AND ORIENTED X2-3. SLEPT 5HR THIS SHIFT. MED COMPLIANT. NO S/S OF DISTRESS. RESPIRATION EVEN AND UNLABORED WITH EQUAL RISE AND FALL OF THE CHEST ON ROOM AIR. SAFETY PRECAUTION MAINTAINED, Q15 MINUTES SAFETY ROUND CONTINUED. ALL PATIENT CARE NEEDS HAVE BEEN MET AT THIS TIME. WILL CONTINUE TO MONITOR PATIENT FOR MOOD, BEHAVIOR AND SAFETY AND ENDORSE TO AM SHIFT.
[2020-11-26 08:00] VITALS: BP 121/75
[2020-11-26] MEDS: BLOOD SUGAR DIAGNOSTIC 1 EACH STRIP IN SCH ×4 (08:32→22:07)
[2020-11-26] MEDS: PANTOPRAZOLE 40 MG TABLET.DR PO SCH (08:33)
[2020-11-26] MEDS: predniSONE 5 MG TABLET PO SCH (08:40)
[2020-11-26] MEDS: QUETIAPINE FUMARATE 100 MG TABLET PO SCH ×2 (08:40→20:34)
[2020-11-26] MEDS: SERTRALINE HCL 50 MG TABLET PO SCH (08:40)
[2020-11-26] MEDS: LISINOPRIL (10MG) 10 MG TABLET PO SCH (08:41)
[2020-11-26] MEDS: GABAPENTIN 300 MG CAPSULE PO SCH ×3 (08:45→16:35)
[2020-11-26] MEDS: DOCUSATE SODIUM 100 MG CAPSULE PO SCH ×2 (08:45→16:30)
[2020-11-26] MEDS: HYDROCODONE/APAP 5/325MG TABLET PO PRN ×3 (08:46→21:54)
[2020-11-26 16:00] VITALS: BP 102/64
--- NOTE | 2020-11-26 17:56 | NUR ---
RN NOTES PATIENT RESTING IN BED, CALM, ACCUCHECK DONE AT 0839= 131 MG/DL -REFUSED INSULIN COVERAGE; AT 1216 = 153 MG/DL REFUSED INSULIN COVERAGE, AT 1641 = 130, NO INSULIN COVERAGE NEEDED. ROLAND FOR PAIN MANAGEMENT GIVEN. PM CARE DONE. FOR DC PLANNING PER DR. RUBIN. ALL NEEDS MET, NO OTHER SIGNIFICANT CHANGE IN CONDITION
[2020-11-26] MEDS: LOPERAMIDE HCL (2 MG CAP) 2 MG CAPSULE PO PRN (19:58)
--- NOTE | 2020-11-26 20:36 | NUR ---
GPS RN NOTES: PATIENT HAD DIARRHEA IMODIUM 2MG 2CAPS/4MG GIVEN PO PRN ORDERED AT 1957. WILL CONTINUE TO MONITOR.
[2020-11-26 20:39] VITALS: BP 93/60
--- NOTE | 2020-11-26 21:55 | NUR ---
GPS RN NOTES: PATIENT C/O GENERALIZED BODY PAIN, YELLING, SCREAMING, MOANING. RATES PAIN LEVEL 8/10. NORCO 5/325MG 2TABS GIVEN PO PRN ORDERED AT 2154. WILL CONTINUE TO MONITOR.
[2020-11-26] MEDS: SENNOSIDES 8.6 MG TABLET PO SCH (22:00)
[2020-11-26] MEDS: ATORVASTATIN 10 MG TABLET PO SCH (22:06)
[2020-11-26] MEDS: TEMAZEPAM 7.5 MG CAPSULE PO PRN (23:05)
--- NOTE | 2020-11-26 23:09 | NUR ---
GPS RN NOTES: PATIENT REQUESTED FOR SLEEP MEDICATION D/T INSOMNIA. RESTORIL 7.5MG 2CAPS/15MG GIVEN PO PRN ORDERED AT 2305. WILL CONTINUE TO MONITOR.
[2020-11-27] MEDS ORDERED: Z GUARD REMEDY 2 OZ OINT TP PRN (04:00)
[2020-11-27] MEDS: HYDROCODONE/APAP 5/325MG TABLET PO PRN ×2 (06:16→16:30)
[2020-11-27] MEDS: BLOOD SUGAR DIAGNOSTIC 1 EACH STRIP IN SCH ×2 (07:41→10:30)
[2020-11-27 08:00] VITALS: BP 113/74
[2020-11-27] MEDS: PANTOPRAZOLE 40 MG TABLET.DR PO SCH (08:34)
[2020-11-27] MEDS: GABAPENTIN 300 MG CAPSULE PO SCH ×3 (08:34→16:30)
[2020-11-27] MEDS: DOCUSATE SODIUM 100 MG CAPSULE PO SCH ×2 (08:35→16:29)
[2020-11-27] MEDS: SERTRALINE HCL 50 MG TABLET PO SCH (08:35)
[2020-11-27] MEDS: QUETIAPINE FUMARATE 100 MG TABLET PO SCH ×2 (08:35→21:25)
[2020-11-27] MEDS: LISINOPRIL (10MG) 10 MG TABLET PO SCH (08:35)
[2020-11-27] MEDS: Z GUARD REMEDY 2 OZ OINT TP SCH (08:37)
[2020-11-27] MEDS: LORAZEPAM 1 MG TABLET PO PRN ×2 (08:53→20:02)
[2020-11-27] MEDS: LOPERAMIDE HCL (2 MG CAP) 2 MG CAPSULE PO PRN (11:34)
--- NOTE | 2020-11-27 11:42 | NUR ---
WOUND CARE CONSULT: PT PRESENTS WITH ALL OVER SKIN DISCOLORATION WITH RED AREAS, PRESENT ON ADMISSION PER RN. PT ALSO NOTED TO HAVE REDNESS TO PERINEAL AND PERIANAL AREA. PT IS INCONTINENT. RECOMMENDATIONS MADE FOR SKIN PROTECTION. DISCUSSED WITH NURSING STAFF.
--- NOTE | 2020-11-27 11:49 | NUR ---
SNF Contact: Blossom ([phone]) from [facility] stated that the pt was not accepted to their facility.
--- NOTE | 2020-11-27 11:49 | NUR ---
SNF Contact: FERNANDEZ faxed a referral to [facility] with attn to ABUNDIO and Joey to the fax number: [phone].
--- NOTE | 2020-11-27 14:16 | NUR ---
RN NOTE PATIENT REFUSED A.M LABS. WATER RESOURCE ENGINEER TO TRY LATER TODAY.
[2020-11-27 16:00] VITALS: BP 137/78
--- NOTE | 2020-11-27 20:03 | NUR ---
GPS RN NOTE PT IN BED ANXIOUS, ATIVAN 1 MG PO GIVEN. CONTINUE TO MONITOR.
--- NOTE | 2020-11-27 21:03 | NUR ---
GPS RN NOTE ANXIETY SUBSIDED. NO FURTHER DISTRESS NOTED.
[2020-11-27] MEDS: ATORVASTATIN 10 MG TABLET PO SCH (21:25)
--- NOTE | 2020-11-27 21:25 | NUR ---
GPS RN NOTE PT REQUESTING FOR SLEEPING MED, RESTORIL 15 MG PO GIVEN FOR SLEEP, ALSO HS MEDS GIVEN. AND HELD SENOKOT DUE TO LOOSE STOOL. CONTINUE TO MONITOR HIM.
[2020-11-27] MEDS: TEMAZEPAM 7.5 MG CAPSULE PO PRN (21:26)
[2020-11-27] MEDS: SENNOSIDES 8.6 MG TABLET PO SCH (22:00)
--- NOTE | 2020-11-27 22:28 | NUR ---
GPS RN NOTE COVID 19 RAPID SPECIMEN COLLECTED AND SENT TO LAB ORDERED.
[2020-11-28 03:52] VITALS: BP 106/62
[2020-11-28 04:33] VITALS: BP 106/62
[2020-11-28 08:00] VITALS: BP 104/70
[2020-11-28] MEDS: DOCUSATE SODIUM 100 MG CAPSULE PO SCH (09:00)
[2020-11-28] MEDS: GABAPENTIN 300 MG CAPSULE PO SCH (09:03)
[2020-11-28 09:04] VITALS: BP 104/70
[2020-11-28] MEDS: LISINOPRIL (10MG) 10 MG TABLET PO SCH (09:04)
[2020-11-28] MEDS: SERTRALINE HCL 50 MG TABLET PO SCH (09:04)
[2020-11-28] MEDS: BLOOD SUGAR DIAGNOSTIC 1 EACH STRIP IN SCH (09:04)
[2020-11-28] MEDS: QUETIAPINE FUMARATE 100 MG TABLET PO SCH (09:04)
[2020-11-28] MEDS: PANTOPRAZOLE 40 MG TABLET.DR PO SCH (09:04)
[2020-11-28] MEDS: Z GUARD REMEDY 2 OZ OINT TP SCH (09:11)
--- NOTE | 2020-11-28 11:28 | NUR ---
GPS CARRY IN WORKER NOTE : PATIENT DISCHARGE TO [facility]F AT [address] [place] [address] .PATIENT IN STABLE CONDITION NO S/S DISTRESS NOTED, VSS, DENIES SI/HI AVH, DENIES FEELING DEPRESSED, CALM COOPERATIVE COMPLIANT WITH MEDICATIONS AND TX, OT A/OX2-3 . PATIENT WAS SEEN AND EXAMINE BY DR. RUBIN . MEDICATIONS RECONCILIATION DONE,DR MEAD NOTIFIED ORDER DC PATIENT DC HOLD PLACED. EXIT CARE DONE PRINTED GIVEN TO PATIENT . PATIENT REFUSED TO SIGN PAPERS . SKIN ASSESSMENT DONE PICTURE PLACED IN THE CHART. PATIENT NON SMOKER,PATIENT LEFT VIA AMBULANCE. REPORT GIVEN RN IN THE FACILITY.ALL BELONGINGS AND VALUABLES RETURNED TO PATIENT.
--- NOTE | 2020-11-28 12:01 | NUR ---
Discharge Note: Pt will be discharged to [facility] located at [address] [place] [address]; . Pt will be in Rm 104A. Pt will be discharged via [facility] at 11AM. There was no one to notify about this pts discharge. Upon discharge, the pt appears to be in a depressed mood and presents with an irritated affect. Pt denies both suicidal and homicidal ideation as well as auditory and visual hallucinations. Pt appears to be alert and oriented x4. Pt appears to be ungroomed and disheveled. Pt presents as bed bound. Pt will be under the care of his psychiatrist, Dr. Bishop, located at [address] [facility], [address] [place] [address]; and his dye box operator, Dr. Carballo, located at [address] [address], [place] [address]; . The choice of vendor form and multidisciplinary exit care form were done, printed, signed, and given to the patient
== END 2020-11-28 11:30 | DRG 885 ==
LOC: ER 19:12 → GPS 11-13 11:01
PROVIDERS: ADMIT Psychiatry & Neurology Psychiatry; ATTEND Legal Medicine
DX: F25.9 Schizoaffective disorder, unspecified (principal); F29 Unspecified psychosis not due to a substance or known physiological condition; I10 Essential (primary) hypertension; Z86.73 Personal history of transient ischemic attack (TIA), and cerebral infarction without residual deficits; E11.9 Type 2 diabetes mellitus without complications; Z87.440 Personal history of urinary (tract) infections; K21.9 Gastro-esophageal reflux disease without esophagitis; G47.00 Insomnia, unspecified; G89.29 Other chronic pain; Z98.890 Other specified postprocedural states; Z86.61 Personal history of infections of the central nervous system; Z79.899 Other long term (current) drug therapy
CPT/HCPCS: 36415; 80048-TC; 80053-TC; 80061-TC; 80076-TC; 82962-TC; 83690-TC; 85025-TC; 87081-TC; 97112-TC; 97530-TC; C9803; J1644; J1815; J7512

== ENCOUNTER 2021-06-18 14:51 | Inpatient (IN) | payer MEDICARE, OTHER ==
[~2021-06-18] VITALS: Ht 170.2 cm; Wt 121.1 kg
[~2021-06-18 14:51] MED LIST: ACET-868 PO; ASCO-352 PO; BISA10SU11 RC; DOCU-141 PO; FERR325T23 PO; GABA-532 PO; GLUC1KIT IM; HEPA50008 SQ; HYDR-3972 PO; INSU100V39 SQ; INSU100V7 SQ; LIDO30AD10 TP; LISI10TA29 PO; MAGN400O6 PO; NA P133E RC; PANT40TA2 PO; PRED20TA PO; SENN-261 PO
[2021-06-18] MEDS ORDERED: ATOR10TA PO (15:23)
[2021-06-18] MEDS ORDERED: LORA-259 PO (15:23)
[2021-06-18] MEDS ORDERED: INSU100V39 SQ (15:23)
[2021-06-18] MEDS ORDERED: QUET25TA PO (15:23)
[2021-06-18] MEDS ORDERED: LOPE2TAB25 PO (15:23)
[2021-06-18] MEDS ORDERED: SERT100T PO (15:23)
[2021-06-18] MEDS ORDERED: FURO-144 PO (15:23)
[2021-06-18] MEDS ORDERED: QUET100T PO (15:23)
[2021-06-18] MEDS ORDERED: NA P133E RC (15:23)
[2021-06-18] MEDS ORDERED: MAGN400O6 PO (15:23)
[2021-06-18 15:25] LABS: BASOPHILS % (AUTO) 0.4 % (0.0-2.0); EOSINOPHILS % (AUTO) 0.3 % (0.0-6.0); HEMATOCRIT 44 % (39-51); HEMOGLOBIN 14.6 g/dL (13.5-17.5); LYMPHOCYTES # (AUTO) 1.1 K/uL (0.8-4.8); LYMPHOCYTES % (AUTO) 11.9 % (20.0-44.0); MEAN CORPUSCULAR HGB CONC 33 g/dl (31.0-36.0); MEAN CORPUSCULAR VOLUME 85 fL (80-96); MONOCYTES # (AUTO) 0.6 K/uL (0.1-1.30); MONOCYTES % (AUTO) 6.5 % (2.0-12.0); NEUTROPHILS # (AUTO) 7.6 K/uL (1.8-8.9); NEUTROPHILS % (AUTO) 80.9 % (43.0-81.0); PLATELET COUNT (AUTO) 272 K/uL (150-450); RED BLOOD CELL COUNT(AUTO) 5.19 MIL/uL (4.5-6.0); WHITE BLOOD COUNT (AUTO) 9.4 K/uL (4.3-11.0)
[2021-06-18 15:29] LABS: CALCIUM, SERUM 9.2 mg/dL (8.5-10.1); CARBON DIOXIDE 27 mmol/L (21-32); CHLORIDE 104 mmol/L (98-107); GLUCOSE 121 mg/dL (74-106); POTASSIUM 3.9 mmol/L (3.5-5.1); SODIUM SERUM 141 mmol/L (136-145); UREA NITROGEN, BLOOD 19 mg/dL (7-18)
[2021-06-18 15:43] LABS: ACETAMINOPHEN 0 ug/ml (10-30); ALANINE AMINOTRANSFERASE 20 U/L (12-78); ALBUMIN 4.2 g/dL (3.4-5.0); ALCOHOL, BLOOD < 3 mg/dL (0-0); ALKALINE PHOSPHATASE 98 U/L (46-116); ASPARTATE AMINOTRANSFERASE 18 U/L (15-37); BILIRUBIN,DIRECT 0.2 mg/dL (0.0-0.2)
[2021-06-18 16:19] LABS: BILIRUBIN,URINE NEGATIVE (NEGATIVE); COLOR,URINE YELLOW (YELLOW); LEUKOCYTE ESTERASE ,URINE SMALL (NEGATIVE); NITRITE, URINE NEGATIVE (NEGATIVE); PROTEIN,URINE NEGATIVE (NEGATIVE); UGLUCOSE NEGATIVE (NEGATIVE); UROBILINOGEN,URINE 0.2 EU/dL (0.2)
[2021-06-18 16:32] LABS: BACTERIA,URINE 4+ /HPF (None Seen); RBC,URINE 0-2 /HPF (0-2); SQUAMOUS EPITHELIAL CELL,UR 0-2 /HPF (None Seen); WBC,URINE 21-50 /HPF (0-3)
[2021-06-18] MEDS ORDERED: CEFUROXIME AXETIL 250 MG TABLET PO SCH (17:00)
--- NOTE | 2021-06-18 17:00 | NUR ---
MOVE SHEET SUBMITTED.
--- NOTE | 2021-06-18 17:55 | NUR ---
Destin kruger in [facility] - 06/18/21 at 1828 by KIRSTEN EPIC CALLED POWER SYSTEM OPERATOR WESLEY.
--- NOTE | 2021-06-18 18:28 | NUR ---
CALLED DR. RUBIN [phone] X 1 LEFT MSG.
[2021-06-18] MEDS: POLYETHYLENE GLYCOL 3350 17 GM POWD.PACK PO SCH (19:00)
[2021-06-18] MEDS ORDERED: hydrALAZINE HCL 10 MG TABLET PO PRN (19:00)
[2021-06-18] MEDS: BLOOD SUGAR DIAGNOSTIC 1 EACH STRIP IN SCH ×2 (19:00→22:00)
[2021-06-18] MEDS ORDERED: LORAZEPAM 1 MG TABLET PO PRN (19:00)
[2021-06-18] MEDS ORDERED: INSULIN REGULAR, HUMAN 100 UNIT/ML 3 ML VIAL SQ PRN (19:00)
[2021-06-18] MEDS ORDERED: DEXTROSE 50%-WATER 50 ML DISP.SYRIN IV PRN (19:00)
--- NOTE | 2021-06-18 19:07 | NUR ---
GOT BED 212-A
--- NOTE | 2021-06-18 20:29 | NUR ---
GIVE REPORT TO MS JUAN FOR JOSÉ MIGUEL,PT WILL GO TO ROOM 214 NURSE REQUESTED PT TO BE TRANSFER @ 2100 DUE TO THEY ARE STILL BUSY UP THERE
[2021-06-18] MEDS ORDERED: QUETIAPINE FUMARATE 100 MG TABLET PO SCH (21:00)
--- NOTE | 2021-06-18 21:22 | NUR ---
MOVE TO ROOM 214-1 VIA [facility] RECEIVING NURSE AND MAINSPRING STRIP GAUGER AT BEDSIDE
[2021-06-18] MEDS ORDERED: MAG HYDROX/AL HYDROX/SIMETH 30 ML UDC PO PRN (22:00)
[2021-06-18] MEDS ORDERED: ACETAMINOPHEN 325 MG TABLET PO PRN (22:00)
[2021-06-18] MEDS ORDERED: MAGNESIUM HYDROXIDE 30 ML UDC PO PRN (22:00)
[2021-06-18] MEDS ORDERED: BLOOD SUGAR DIAGNOSTIC 1 EACH STRIP IN ONE (22:30)
[2021-06-18] MEDS: ZOLPIDEM TARTRATE 5 MG TABLET PO PRN (23:09)
--- NOTE | 2021-06-18 23:11 | NUR ---
GPS RN NOTES: PATIENT REQUESTED SLEEP MEDICATION. AMBIEN 5MG GIVEN PO AT 2309. WILL CONTINUE TO MONITOR.
[2021-06-18] MEDS: ATORVASTATIN 10 MG TABLET PO SCH (23:13)
--- NOTE | 2021-06-18 23:29 | NUR ---
GPS RN NOTES: PATIENT C/O GENERALIZED BODY PAIN. TYLENOL 650MG GIVEN PO AT 2317. WILL CONTINUE TO MONITOR.
--- NOTE | 2021-06-19 01:02 | NUR ---
GPS RN NOTES: PATIENT ARRIVED THIS UNIT ON A STRETCHER WITH 2 ER ESCORT, ON A 5150 HOLD FOR GD/DTO. HOLD WAS PLACED ON 06/18/21 @ 1928. PER HOLD, PATIENT ORIGINALLY CAME FROM [facility] D/T INCREASED AGITATION AND AGGRESSIVE BEHAVIOR. PATIENT HAS BEEN REFUSING MEDICATIONS, PHYSICALLY AGGRESSIVE, HITTING STAFF MEMBER AND OTHER RESIDENTS AT THE FACILITY, VERBALLY ABUSIVE, SCREAMING AND YELLING, DEMANDING, THROWING THINGS AT STAFF MEMBER, THREATENING STAFF WITH A RAZOR BLADE, IMPULSIVE AND UNPREDICTABLE, AND HAS NO REGARDS TO THE SAFETY OF OTHERS. UPON FACE TO FACE EVALUATION, PATIENT IS A/O X1-2, UNCOOPERATIVE, AGITATED, AGGRESSIVE, VERBALLY ABUSIVE, SCREAMING AND YELLING, CURSING, DEMANDING "I WANT TO LEAVE RIGHT NOW". "I NEED TV IN THIS ROOM". PATIENT REFUSED TO ANSWER ADMISSION QUESTIONS, REFUSED SKIN ASSESSMENT, REFUSED ACCU CHEK AND MRSA. PATIENT REFUSED TO SIGN ALL ADMISSION PAPERWORK. PATIENT IS UNDER THE PSYCHIATRIC CARE OF DR. CHAIREZ AND THE MEDICAL CARE OF DR NGO. PATIENT BELONGINGS WERE INVENTORIED AND CHECKED FOR CONTRABAND. CONTRABAND REMOVED AND SENT TO [facility] [facility]. PATIENT ADVANCED DIRECTIVES PREFERENCE, IMMUNIZATIONS QUESTIONER, NECESSARY PAPERWORK COMPLETED. PATIENT EDUCATED ON THE USE OF THE CALL MEJIA. BED IN LOWEST POSITION, SIDE RAILS ARE UP X2 FOR SAFETY. WILL CONTINUE TO MONITOR Q15 MIN FOR MOOD, BEHAVIOR AND SAFETY.
[2021-06-19 08:00] VITALS: BP 142/76
[2021-06-19] MEDS ORDERED: SERTRALINE HCL 50 MG TABLET PO SCH ×2 (09:00)
[2021-06-19] MEDS: BLOOD SUGAR DIAGNOSTIC 1 EACH STRIP IN SCH ×4 (09:54→21:17)
[2021-06-19] MEDS: LISINOPRIL (10MG) 10 MG TABLET PO SCH (10:04)
[2021-06-19] MEDS: DOCUSATE SODIUM 100 MG CAPSULE PO SCH ×2 (10:05→18:14)
[2021-06-19] MEDS: PANTOPRAZOLE 40 MG TABLET.DR PO SCH (10:05)
[2021-06-19] MEDS: FUROSEMIDE 40 MG TABLET PO SCH (10:05)
[2021-06-19] MEDS: POLYETHYLENE GLYCOL 3350 17 GM POWD.PACK PO SCH (10:05)
[2021-06-19] MEDS: SULFAMETH/TRIMETH 800/160 MG 1 UDTAB TABLET PO SCH ×2 (10:07→18:14)
--- NOTE | 2021-06-19 11:18 | NUR ---
FERNANDEZ Initial Discharge Plan: Pt currently resides at [facility]. Per Lucian de santiago from [facility] ([phone]) pt is welcomed back upon discharge. Pt does not want his mother to be contacted Maricruz ([phone]). FERNANDEZ will work with the MD and treatment plan to coordinate appropriate discharge.
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
[2021-06-19] MEDS ORDERED: NA PHOS,M-B/NA PHOS,DI-BA 1 EA ENEMA RC PRN (12:30)
[2021-06-19] MEDS ORDERED: BISACODYL SUPP (10 MG) 10 MG/SUPP.RECT SUPP.RECT RC PRN (12:30)
[2021-06-19] MEDS ORDERED: MAGNESIUM HYDROXIDE 30 ML UDC PO PRN (12:30)
[2021-06-19] MEDS ORDERED: CEPHALEXIN MONOHYDRATE 250 MG CAPSULE PO SCH (13:00)
[2021-06-19] MEDS: LORAZEPAM 1 MG TABLET PO PRN (14:22)
--- NOTE | 2021-06-19 14:28 | NUR ---
offered ativan several times,refused.said he just wants to leave instead,now requesting ativan.
[2021-06-19] MEDS: GABAPENTIN 300 MG CAPSULE PO SCH (18:13)
[2021-06-19 20:00] VITALS: BP 125/76
[2021-06-19] MEDS: ATORVASTATIN 10 MG TABLET PO SCH (21:02)
[2021-06-19] MEDS: QUETIAPINE FUMARATE 100 MG TABLET PO SCH (21:02)
[2021-06-19] MEDS: SENNOSIDES 8.6 MG TABLET PO SCH (21:02)
[2021-06-19] MEDS: ZOLPIDEM TARTRATE 5 MG TABLET PO PRN (21:44)
--- NOTE | 2021-06-19 21:44 | NUR ---
GPS-RN NOTES: INSOMNIA PATIENT C/O INABILITY TO SLEEP. PRN AMBIEN 5MG PO ORDERED. WILL CONTINUE TO MONITOR.
[2021-06-20 06:47] LABS: BASOPHILS # (AUTO) 0.1 K/uL (0.0-0.2); BASOPHILS % (AUTO) 0.5 % (0.0-2.0); EOSINOPHILS % (AUTO) 1.1 % (0.0-6.0); HEMATOCRIT 41 % (39-51); HEMOGLOBIN 13.6 g/dL (13.5-17.5); LYMPHOCYTES # (AUTO) 3.1 K/uL (0.8-4.8); LYMPHOCYTES % (AUTO) 30.4 % (20.0-44.0); MEAN CORPUSCULAR HGB CONC 33 g/dl (31.0-36.0); MEAN CORPUSCULAR VOLUME 85 fL (80-96); MONOCYTES % (AUTO) 9.7 % (2.0-12.0); NEUTROPHILS % (AUTO) 58.3 % (43.0-81.0); PLATELET COUNT (AUTO) 232 K/uL (150-450); RED BLOOD CELL COUNT(AUTO) 4.78 MIL/uL (4.5-6.0); WHITE BLOOD COUNT (AUTO) 10.3 K/uL (4.3-11.0)
[2021-06-20] MEDS: BLOOD SUGAR DIAGNOSTIC 1 EACH STRIP IN SCH ×2 (07:21→12:03)
[2021-06-20 07:27] LABS: CALCIUM, SERUM 8.8 mg/dL (8.5-10.1); POTASSIUM 3.7 mmol/L (3.5-5.1)
[2021-06-20 08:00] VITALS: BP 98/50
[2021-06-20] MEDS: GABAPENTIN 300 MG CAPSULE PO SCH ×3 (08:33→16:27)
[2021-06-20] MEDS: POLYETHYLENE GLYCOL 3350 17 GM POWD.PACK PO SCH (08:33)
[2021-06-20] MEDS: PANTOPRAZOLE 40 MG TABLET.DR PO SCH (08:33)
[2021-06-20] MEDS: SULFAMETH/TRIMETH 800/160 MG 1 UDTAB TABLET PO SCH ×2 (08:33→16:27)
[2021-06-20] MEDS: DOCUSATE SODIUM 100 MG CAPSULE PO SCH ×2 (08:33→16:27)
[2021-06-20] MEDS: DIVALPROEX SODIUM 250 MG TABLET.DR PO SCH ×3 (08:35→16:27)
[2021-06-20] MEDS: LISINOPRIL (10MG) 10 MG TABLET PO SCH (08:35)
[2021-06-20] MEDS: FUROSEMIDE 40 MG TABLET PO SCH (08:35)
[2021-06-20] MEDS: QUETIAPINE FUMARATE 100 MG TABLET PO SCH ×2 (08:35→21:47)
--- NOTE | 2021-06-20 09:00 | NUR ---
RN NOTE- PT ISOLATIVE MED COMPLIANT POOR EYE CONTACT DENIES ALL
[2021-06-20] MEDS: LORAZEPAM 1 MG TABLET PO PRN ×2 (10:42→17:41)
--- NOTE | 2021-06-20 10:43 | NUR ---
RN NOTE- PT W ANXIETY. ATIVAN 1 MG GIVEN
--- NOTE | 2021-06-20 11:33 | NUR ---
FERNANDEZ Family Contact: SW notified pt's mother Maricruz ([phone]) and left a voicemail of pt's treatment/discharge plan.
[2021-06-20 16:00] VITALS: BP 90/51
--- NOTE | 2021-06-20 17:41 | NUR ---
RN NOTE- C/O ANXIETY. ATIVAN 1 MG ADMINISTERED
[2021-06-20 20:00] VITALS: BP 130/75
[2021-06-20 20:15] VITALS: BP 130/75
[2021-06-20] MEDS: SENNOSIDES 8.6 MG TABLET PO SCH (21:47)
[2021-06-20] MEDS: ATORVASTATIN 10 MG TABLET PO SCH (21:47)
[2021-06-20 22:00] VITALS: BP 130/75
[2021-06-20] MEDS: ZOLPIDEM TARTRATE 5 MG TABLET PO PRN (22:38)
--- NOTE | 2021-06-20 22:39 | NUR ---
RN NOTE: INSOMNIA PATIENT C/O INABILITY TO SLEEP. PRN AMBIEN 5MG PO ADMINISTERED ORDERED. WILL CONTINUE TO MONITOR.
[2021-06-21] MEDS: PANTOPRAZOLE 40 MG TABLET.DR PO SCH (08:50)
[2021-06-21] MEDS: DOCUSATE SODIUM 100 MG CAPSULE PO SCH ×2 (09:00→17:00)
[2021-06-21] MEDS: POLYETHYLENE GLYCOL 3350 17 GM POWD.PACK PO SCH (09:00)
[2021-06-21] MEDS: GABAPENTIN 300 MG CAPSULE PO SCH ×3 (09:12→17:11)
[2021-06-21] MEDS: QUETIAPINE FUMARATE 100 MG TABLET PO SCH ×2 (09:12→21:08)
[2021-06-21] MEDS: SULFAMETH/TRIMETH 800/160 MG 1 UDTAB TABLET PO SCH ×2 (09:12→17:11)
[2021-06-21] MEDS: DIVALPROEX SODIUM 250 MG TABLET.DR PO SCH ×3 (09:12→17:11)
[2021-06-21] MEDS: FUROSEMIDE 40 MG TABLET PO SCH (09:14)
[2021-06-21] MEDS: LISINOPRIL (10MG) 10 MG TABLET PO SCH (09:15)
--- NOTE | 2021-06-21 09:30 | NUR ---
RN-NOTES PATIENT WAS SELECTIVE WITH MEDICATIONS. REFUSED STOOL SOFTENER STATED" I DON'T TAKE ANY LAXATIVE TODAY". EXPLAINED RISK AND BENEFITS STILL REFUSED. OFFERED X3.
[2021-06-21] MEDS: LORAZEPAM 1 MG TABLET PO PRN ×2 (09:59→19:08)
--- NOTE | 2021-06-21 10:00 | NUR ---
RN-NOTES PATIENT REQUESTING ATIVAN FOR HIS ANXIETY. ATIVAN 1MG P.O GIVEN PRN ORDER. WILL CONT. MONITORING FOR SAFETY AND BEHAVIOR.
[2021-06-21 10:05] VITALS: BP 124/56
--- NOTE | 2021-06-21 11:00 | NUR ---
RN-NOTES PATIENT IN THE DAY ROOM WATCHING TV,CALM,NO ACUTE DISTRESS NOTED.
[2021-06-21 16:00] VITALS: BP 123/83
--- NOTE | 2021-06-21 19:09 | NUR ---
RN-NOTES PATIENT REQUESTING ATIVAN FOR HIS ANXIETY. ATIVAN 1MG P.O GIVEN PRN ORDER. WILL ENDORSE TO INCOMING NURSE TO CONT. MONITORING FOR SAFETY AND BEHAVIOR AND CONTINUITY OF CARE.
[2021-06-21 20:30] VITALS: BP 143/60
[2021-06-21] MEDS: ATORVASTATIN 10 MG TABLET PO SCH (21:08)
[2021-06-21] MEDS: SENNOSIDES 8.6 MG TABLET PO SCH (21:08)
[2021-06-21] MEDS: ZOLPIDEM TARTRATE 5 MG TABLET PO PRN (21:13)
--- NOTE | 2021-06-21 21:13 | NUR ---
RN NOTE: INSOMNIA PT C/O INABILITY TO SLEEP. ADMINISTERED AMBIEN 5MG PO PRN PER ORDER. WILL CONTINUE TO MONITOR PT CLOSELY.
[2021-06-22 08:00] VITALS: BP 118/64
[2021-06-22] MEDS: POLYETHYLENE GLYCOL 3350 17 GM POWD.PACK PO SCH (09:00)
[2021-06-22] MEDS: DOCUSATE SODIUM 100 MG CAPSULE PO SCH ×2 (09:00→17:00)
[2021-06-22] MEDS: GABAPENTIN 300 MG CAPSULE PO SCH ×3 (09:07→17:45)
[2021-06-22] MEDS: DIVALPROEX SODIUM 250 MG TABLET.DR PO SCH ×3 (09:07→17:45)
[2021-06-22] MEDS: QUETIAPINE FUMARATE 100 MG TABLET PO SCH ×2 (09:07→21:35)
[2021-06-22] MEDS: PANTOPRAZOLE 40 MG TABLET.DR PO SCH (09:07)
[2021-06-22] MEDS: SULFAMETH/TRIMETH 800/160 MG 1 UDTAB TABLET PO SCH ×2 (09:08→17:45)
[2021-06-22] MEDS: FUROSEMIDE 40 MG TABLET PO SCH (09:09)
[2021-06-22] MEDS: LISINOPRIL (10MG) 10 MG TABLET PO SCH (09:14)
[2021-06-22] MEDS: LORAZEPAM 1 MG TABLET PO PRN ×2 (09:20→18:54)
--- NOTE | 2021-06-22 09:22 | NUR ---
RN-NOTES PATIENT IS IRRITABLE AND REQUESTING ATIVAN. ATIVAN 1MG P.O GIVEN PRN ORDER. WILL CONT. MONITORING FOR SAFETY AND BEHAVIOR.
--- NOTE | 2021-06-22 09:30 | NUR ---
RN-NOTES PATIENT CONTINUE REFUSING STOOL SOFTENER STATED" I DON'T NEED IT ,I HAVE BM YESTERDAY". EXPLAINED RISK AND BENEFITS STILL REFUSED. OFFERED X3.
[2021-06-22 16:00] VITALS: BP 100/68
[2021-06-22] MEDS ORDERED: OLANZAPINE 10 MG VIAL IM ONE (16:00)
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
[2021-06-22 19:39] VITALS: BP 101/52
[2021-06-22] MEDS: SENNOSIDES 8.6 MG TABLET PO SCH (21:35)
[2021-06-22] MEDS: ATORVASTATIN 10 MG TABLET PO SCH (21:35)
[2021-06-22] MEDS: ZOLPIDEM TARTRATE 5 MG TABLET PO PRN (21:36)
[2021-06-23] MEDS: LORAZEPAM 1 MG TABLET PO PRN ×4 (01:55→22:46)
[2021-06-23 08:00] VITALS: BP 119/76
[2021-06-23] MEDS: DOCUSATE SODIUM 100 MG CAPSULE PO SCH ×2 (08:18→16:15)
[2021-06-23] MEDS: DIVALPROEX SODIUM 250 MG TABLET.DR PO SCH ×3 (08:18→16:15)
[2021-06-23] MEDS: LISINOPRIL (10MG) 10 MG TABLET PO SCH (08:18)
[2021-06-23] MEDS: PANTOPRAZOLE 40 MG TABLET.DR PO SCH (08:18)
[2021-06-23] MEDS: FUROSEMIDE 40 MG TABLET PO SCH (08:19)
[2021-06-23] MEDS: QUETIAPINE FUMARATE 100 MG TABLET PO SCH ×3 (08:19→21:27)
[2021-06-23] MEDS: SULFAMETH/TRIMETH 800/160 MG 1 UDTAB TABLET PO SCH ×2 (08:19→16:15)
[2021-06-23] MEDS: GABAPENTIN 300 MG CAPSULE PO SCH ×3 (08:19→16:15)
[2021-06-23] MEDS: POLYETHYLENE GLYCOL 3350 17 GM POWD.PACK PO SCH (08:43)
--- NOTE | 2021-06-23 08:43 | NUR ---
RN-CO: ATIVAN 1 MG GIVEN FOR AGITATION. YELLING AND THREATENING THE NURSES.
--- NOTE | 2021-06-23 15:03 | NUR ---
RN-CO: ATIVAN 1 MG PO GIVEN FOR C/O ANXIETY.
[2021-06-23 16:00] VITALS: BP 113/75
[2021-06-23] MEDS ORDERED: OLANZAPINE 10 MG VIAL IM STA (16:44)
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
[2021-06-23 19:31] VITALS: BP 124/75
[2021-06-23] MEDS: ATORVASTATIN 10 MG TABLET PO SCH (21:27)
[2021-06-23] MEDS: SENNOSIDES 8.6 MG TABLET PO SCH (21:27)
[2021-06-23] MEDS: ZOLPIDEM TARTRATE 5 MG TABLET PO PRN (21:28)
[2021-06-24 08:00] VITALS: BP 118/75
[2021-06-24] MEDS: GABAPENTIN 300 MG CAPSULE PO SCH ×3 (08:12→16:06)
[2021-06-24] MEDS: DIVALPROEX SODIUM 250 MG TABLET.DR PO SCH ×3 (08:12→16:06)
[2021-06-24] MEDS: SULFAMETH/TRIMETH 800/160 MG 1 UDTAB TABLET PO SCH ×2 (08:12→16:06)
[2021-06-24] MEDS: QUETIAPINE FUMARATE 100 MG TABLET PO SCH ×3 (08:12→21:47)
[2021-06-24] MEDS: LISINOPRIL (10MG) 10 MG TABLET PO SCH (08:12)
[2021-06-24] MEDS: FUROSEMIDE 40 MG TABLET PO SCH (08:12)
[2021-06-24] MEDS: PANTOPRAZOLE 40 MG TABLET.DR PO SCH (08:12)
[2021-06-24] MEDS: LORAZEPAM 1 MG TABLET PO PRN ×3 (08:13→21:01)
[2021-06-24] MEDS: POLYETHYLENE GLYCOL 3350 17 GM POWD.PACK PO SCH (08:16)
[2021-06-24] MEDS: DOCUSATE SODIUM 100 MG CAPSULE PO SCH ×2 (08:16→16:06)
--- NOTE | 2021-06-24 08:31 | NUR ---
RN-CO: ATIVAN 1 MG PO GIVEN FOR C/O ANXIETY.
[2021-06-24 16:00] VITALS: BP 127/82
[2021-06-24 20:25] VITALS: BP 134/87
[2021-06-24 20:40] VITALS: BP 134/87
--- NOTE | 2021-06-24 21:03 | NUR ---
RN NOTE: ANXIETY/AGITATION PATIENT C/O ANXIETY & RESTLESS, NOTED TO BE EASILY AGITATED, LOUD, IRRITABLE. PATIENT REQUESTED TO TAKE ATIVAN AT THIS TIME. PRN ATIVAN 1 MG PO ADMINISTERED.
[2021-06-24 21:15] VITALS: BP 138/80
[2021-06-24] MEDS: ATORVASTATIN 10 MG TABLET PO SCH (21:17)
[2021-06-24] MEDS: SENNOSIDES 8.6 MG TABLET PO SCH (21:21)
--- NOTE | 2021-06-24 21:21 | NUR ---
RN NOTE: REFUSED SENOKOT PATIENT REFUSED SENOKOT 17.2MG X 3 DESPITE OF RISKS & BENEFITS EXPLANATIONS. PATIENT STATED," I HAD BOWEL MOVEMENT THIS MORNING, I DON'T NEED IT."
[2021-06-24] MEDS: ZOLPIDEM TARTRATE 5 MG TABLET PO PRN (22:40)
--- NOTE | 2021-06-24 22:41 | NUR ---
RN NOTE: INSOMNIA PATIENT IS C/O INABILITY TO SLEEP, RESTLESS, ANXIOUS, SCREAMING AT THIS TIME & ASKING TO TAKE SLEEPING MEDICINE. PRN AMBIEN 5MG PO ADMINISTERED ORDERED. WILL CONTINUE TO MONITOR.
[2021-06-25] MEDS: PANTOPRAZOLE 40 MG TABLET.DR PO SCH (07:46)
[2021-06-25 08:00] VITALS: BP 105/58
[2021-06-25] MEDS: LORAZEPAM 1 MG TABLET PO PRN ×2 (08:33→16:57)
[2021-06-25] MEDS: DOCUSATE SODIUM 100 MG CAPSULE PO SCH ×2 (08:34→16:53)
[2021-06-25] MEDS: GABAPENTIN 300 MG CAPSULE PO SCH ×3 (08:34→16:53)
[2021-06-25] MEDS: SULFAMETH/TRIMETH 800/160 MG 1 UDTAB TABLET PO SCH ×2 (08:34→16:52)
[2021-06-25] MEDS: FUROSEMIDE 40 MG TABLET PO SCH (08:34)
[2021-06-25] MEDS: DIVALPROEX SODIUM 250 MG TABLET.DR PO SCH ×2 (08:34→12:26)
[2021-06-25] MEDS: QUETIAPINE FUMARATE 100 MG TABLET PO SCH ×3 (08:34→22:03)
[2021-06-25] MEDS: LISINOPRIL (10MG) 10 MG TABLET PO SCH (08:39)
[2021-06-25] MEDS: POLYETHYLENE GLYCOL 3350 17 GM POWD.PACK PO SCH (08:39)
[2021-06-25] MEDS ORDERED: DIVALPROEX SODIUM 500 MG TABLET.DR PO SCH (13:00)
--- NOTE | 2021-06-25 14:21 | NUR ---
Court Hearing: Patient's court hearing for 2042 was upheld for GD.
[2021-06-25 16:00] VITALS: BP 134/83
[2021-06-25 20:00] VITALS: BP 123/84
[2021-06-25 20:15] VITALS: BP 123/84
[2021-06-25] MEDS: DIVALPROEX SODIUM 500 MG TABLET.DR PO SCH (21:32)
[2021-06-25] MEDS: ATORVASTATIN 10 MG TABLET PO SCH (21:32)
[2021-06-25] MEDS: SENNOSIDES 8.6 MG TABLET PO SCH (21:43)
--- NOTE | 2021-06-25 21:43 | NUR ---
RN NOTE: REFUSED SENOKOT PATIENT REFUSED SENOKOT 17.2 MG X 3 DESPITE OF RISKS & BENEFITS EXPLANATIONS.
[2021-06-25] MEDS: ZOLPIDEM TARTRATE 5 MG TABLET PO PRN (22:58)
--- NOTE | 2021-06-25 22:59 | NUR ---
RN NOTE: INSOMNIA PATIENT IS C/O INABILITY TO SLEEP, RESTLESS, ANXIOUS, ASKING TO TAKE SLEEPING MEDICINE. PRN AMBIEN 5MG PO ADMINISTERED ORDERED. WILL CONTINUE TO MONITOR.
[2021-06-26 08:00] VITALS: BP 109/73
[2021-06-26] MEDS: PANTOPRAZOLE 40 MG TABLET.DR PO SCH (08:46)
[2021-06-26] MEDS: POLYETHYLENE GLYCOL 3350 17 GM POWD.PACK PO SCH (09:00)
[2021-06-26] MEDS: DOCUSATE SODIUM 100 MG CAPSULE PO SCH ×2 (09:00→17:00)
[2021-06-26] MEDS: LISINOPRIL (10MG) 10 MG TABLET PO SCH (09:00)
[2021-06-26] MEDS: QUETIAPINE FUMARATE 100 MG TABLET PO SCH ×3 (09:01→21:06)
[2021-06-26] MEDS: FUROSEMIDE 40 MG TABLET PO SCH (09:01)
[2021-06-26] MEDS: GABAPENTIN 300 MG CAPSULE PO SCH ×3 (09:01→17:14)
[2021-06-26] MEDS: DIVALPROEX SODIUM 250 MG TABLET.DR PO SCH ×2 (09:04→12:23)
[2021-06-26] MEDS: LORAZEPAM 1 MG TABLET PO PRN ×2 (09:05→16:17)
--- NOTE | 2021-06-26 09:06 | NUR ---
RN-NOTES PATIENT IS IRRITABLE AND REQUESTING ATIVAN. ATIVAN 1MG P.O GIVEN PRN ORDER. WILL CONT. MONITORING FOR SAFETY AND BEHAVIOR.
--- NOTE | 2021-06-26 10:10 | NUR ---
RN-NOTES PATIENT IN THE DAY ROOM WATCHING TV,CALM,NO ACUTE DISTRESS NOTED.
[2021-06-26] MEDS: ACETAMINOPHEN 325 MG TABLET PO PRN (12:28)
--- NOTE | 2021-06-26 12:30 | NUR ---
RN-NOTES PATIENT REQUESTING TYLENOL FOR HIS BACK PAIN. TYLENOL 650MG P.O GIVEN PRN ORDER. WILL CONT. MONITORING FOR EFFECTIVENESS.
--- NOTE | 2021-06-26 13:30 | NUR ---
RN-NOTES PATIENT COMFORTABLY SLEEPING IN BED EASILY AROUSED,NO ACUTE DISTRESS NOTED.
[2021-06-26 16:00] VITALS: BP 123/78
--- NOTE | 2021-06-26 16:21 | NUR ---
RN-NOTES PATIENT IN THE DAY ROOM VERY ANGRY AND IRRITABLE DEMANDING TO HAVE ATIVAN. ATIVAN 1MG P.O GIVEN PRN ORDER. WILL CONT. MONITORING FOR SAFETY AND BEHAVIOR.
[2021-06-26 20:00] VITALS: BP 116/76
[2021-06-26] MEDS: DIVALPROEX SODIUM 500 MG TABLET.DR PO SCH (21:05)
[2021-06-26] MEDS: SENNOSIDES 8.6 MG TABLET PO SCH (21:06)
[2021-06-26] MEDS: ATORVASTATIN 10 MG TABLET PO SCH (21:06)
[2021-06-26] MEDS: ZOLPIDEM TARTRATE 5 MG TABLET PO PRN (22:08)
--- NOTE | 2021-06-26 22:10 | NUR ---
RN NOTES : INSOMNIA PATIENT IS C/O UNABLE TO SLEEP, RESTLESS, ANXIOUS, PRN AMBIEN 5MG PO ADMINISTERED ORDERED AND PER PT. REQUEST. WILL CONTINUE TO MONITOR.
[2021-06-27 08:00] VITALS: BP 115/82
[2021-06-27] MEDS: GABAPENTIN 300 MG CAPSULE PO SCH ×3 (08:18→16:30)
[2021-06-27] MEDS: QUETIAPINE FUMARATE 100 MG TABLET PO SCH ×3 (08:18→21:19)
[2021-06-27] MEDS: DIVALPROEX SODIUM 250 MG TABLET.DR PO SCH ×2 (08:18→12:17)
[2021-06-27] MEDS: PANTOPRAZOLE 40 MG TABLET.DR PO SCH (08:18)
[2021-06-27] MEDS: FUROSEMIDE 40 MG TABLET PO SCH (08:19)
[2021-06-27] MEDS: LISINOPRIL (10MG) 10 MG TABLET PO SCH (08:19)
[2021-06-27] MEDS: LORAZEPAM 1 MG TABLET PO PRN ×2 (08:22→15:58)
[2021-06-27] MEDS: POLYETHYLENE GLYCOL 3350 17 GM POWD.PACK PO SCH (08:24)
[2021-06-27] MEDS: DOCUSATE SODIUM 100 MG CAPSULE PO SCH ×2 (08:24→16:30)
--- NOTE | 2021-06-27 08:55 | NUR ---
FERNANDEZ Family Contact: SW notified pt's mother Maricruz ([phone]) and left a voicemail of pt's discharge 06/28 back to [facility].
--- NOTE | 2021-06-27 12:19 | NUR ---
Dr. Carballo came in the unit and notified that pt. wanted a regular diet and ordered to change diet to regular diet.
--- NOTE | 2021-06-27 15:56 | NUR ---
RNClarkeCO: PT WAS GIVEN ATIVAN AND TYLENOL FOR ANXIETY AND MILD HEADACHE.
[2021-06-27] MEDS: ACETAMINOPHEN 325 MG TABLET PO PRN (15:58)
[2021-06-27 16:00] VITALS: BP 100/57
--- NOTE | 2021-06-27 17:06 | NUR ---
Pt. is complaining on back pain and stating that Tylenol is not working. Notified that [facility] and ordered Percocet 5/325 mg, 1 tab q6hr prn for severe pain.
[2021-06-27] MEDS: oxyCODONE/APAP (5/325 MG) 1 UDTAB TABLET PO PRN (17:47)
[2021-06-27 20:00] VITALS: BP 94/51
[2021-06-27] MEDS: DIVALPROEX SODIUM 500 MG TABLET.DR PO SCH (21:19)
[2021-06-27] MEDS: SENNOSIDES 8.6 MG TABLET PO SCH (21:19)
[2021-06-27] MEDS: ATORVASTATIN 10 MG TABLET PO SCH (21:19)
[2021-06-27] MEDS: ZOLPIDEM TARTRATE 5 MG TABLET PO PRN (23:02)
[2021-06-28] MEDS: PANTOPRAZOLE 40 MG TABLET.DR PO SCH (07:30)
[2021-06-28 08:00] VITALS: BP 100/60
--- NOTE | 2021-06-28 08:19 | NUR ---
FERNANDEZ Discharge Note: Patient will be discharged to [facility] [address] [place] [address] ([phone]). Please arrange transportation. Spoke with Lucian, Admin Coordinator at the facility who states they are ready to accept the patient today. FERNANDEZ contacted patients mother Maricruz ([phone]) to be contacted. Patient is aware and agreeable with discharge plans and presents with calm mood and euthymic affect. Patient is alert and oriented x2, is unable to plan for self-care. Patient denies any suicidal or homicidal ideation. Patient will follow-up at the facility with Psychiatrist Dr. Bishop [id number] [place] [address]; ([phone]) and [employer] Dr. Carballo at [address] [facility], [address], [place] [address]; ([phone]).
[2021-06-28] MEDS: DOCUSATE SODIUM 100 MG CAPSULE PO SCH (08:45)
[2021-06-28] MEDS: QUETIAPINE FUMARATE 100 MG TABLET PO SCH (08:46)
[2021-06-28] MEDS: GABAPENTIN 300 MG CAPSULE PO SCH ×2 (08:46→12:24)
[2021-06-28] MEDS: POLYETHYLENE GLYCOL 3350 17 GM POWD.PACK PO SCH (08:46)
[2021-06-28] MEDS: DIVALPROEX SODIUM 250 MG TABLET.DR PO SCH ×2 (08:47→12:24)
[2021-06-28 08:48] VITALS: BP 100/60
[2021-06-28] MEDS: LISINOPRIL (10MG) 10 MG TABLET PO SCH (08:48)
[2021-06-28] MEDS: FUROSEMIDE 40 MG TABLET PO SCH (08:48)
[2021-06-28] MEDS: oxyCODONE/APAP (5/325 MG) 1 UDTAB TABLET PO PRN (08:49)
--- NOTE | 2021-06-28 09:42 | NUR ---
Dr. Simpson gave an order to D/C hold and D/C to [facility], to continue same meds including prn and to follow up with psych and medical doctors.
--- NOTE | 2021-06-28 11:10 | NUR ---
Dr. Carballo made aware of the discharge and ordered to continue same meds including prn and said he will follow up pt. in the facility.
--- NOTE | 2021-06-28 15:28 | NUR ---
GPS RELOCATION ASSOCIATE NOTES PATIENT DISCHARGED BACK TO SNF IN MEDICALLY STABLE CONDITION. PATIENT A/O X2, ABLE TO MAKE NEEDS KNOWN. ALL DISCHARGE PAPERWORK READY AND SIGNED BY PATIENT. BELONGINGS ACCOUNTED FOR AND FORM SIGNED BY PATIENT WELL. PATIENT DENIES ANY SUICIDAL AND HOMICIDAL IDEATIONS. PATIENT DENIES AUDITORY OR VISUAL HALLUCINATIONS. FACILITY CALLED AND REPORT GIVEN TO NATHANAEL. PATIENT PICKED UP BY 2 education paraprofessional AND LEFT THE UNIT VIA GURNEY AT 1453.
== END 2021-06-28 15:05 | DRG 885 ==
LOC: ER 15:11 → GPS 20:28
PROVIDERS: ADMIT Psychiatry & Neurology Psychiatry; ATTEND Legal Medicine
DX: F25.9 Schizoaffective disorder, unspecified (principal); G93.41 Metabolic encephalopathy; N39.0 Urinary tract infection, site not specified; G82.20 Paraplegia, unspecified; I10 Essential (primary) hypertension; F31.9 Bipolar disorder, unspecified; Z79.4 Long term (current) use of insulin; Z79.899 Other long term (current) drug therapy; E78.5 Hyperlipidemia, unspecified; E11.42 Type 2 diabetes mellitus with diabetic polyneuropathy; G89.4 Chronic pain syndrome; F41.9 Anxiety disorder, unspecified; E66.01 Morbid (severe) obesity due to excess calories; Z87.39 Personal history of other diseases of the musculoskeletal system and connective tissue; Z86.73 Personal history of transient ischemic attack (TIA), and cerebral infarction without residual deficits
CPT/HCPCS: 36415; 80048-TC; 80061-TC; 80076-TC; 80164-TC; 81001; 82962-TC; 85025-TC; 87081-TC; 87086-TC; 97112-TC; 97116-TC; 97530-TC; C9803; G0480; J1815; J3490